=== PATIENT | female | born 1955 | race Caucasian/White ===

== ENCOUNTER 2016-08-12 15:26 | Emergency (ER) | payer MEDICARE, MEDICAID ==
[~2016-08-12] VITALS: Ht 154.9 cm; Wt 70.0 kg
[~2016-08-12 15:26] MED LIST: INSLAN; LEVO25TA7; NIFE10CA; SIMV20TA2
[2016-08-12] MEDS ORDERED: HYDROCODONE/ACETAMINOPHEN 5/325MG TABLET PO ONE ×2 (16:45→20:00)
[2016-08-12] MEDS ORDERED: LIDOCAINE HCL 1%/EPI 1:200,000 30 ML VIAL MC ONE (16:45)
[2016-08-12 17:05] LABS: BASOPHILS % 0.8 % (0.0-2.0); EOSINOPHILS % 2.8 % (0.0-5.0); HEMATOCRIT. 33.5 % (36.0-48.0); HEMOGLOBIN. 11.4 g/dL (12.0-16.0); LYMPHOCYTES % 14.6 % (20.0-50.0); MEAN CORPUSCULAR HEMOGLOBIN 33.7 pg (28.0-32.0); MEAN CORPUSCULAR VOLUME 99.3 fL (81.0-99.0); MEAN PLATELET VOLUME 10.4 fl (7.4-10.4); MONOCYTES % 8.4 % (2.0-8.0); NEUTROPHILS % 73.4 % (40.0-76.0); PLATELET 215 x1000/uL (130-400); RED BLOOD CELL COUNT 3.38 mill/uL (4.2-5.4); RED CELL DISTRIBUTION WIDTH 15.5 % (11.6-14.6)
[2016-08-12 17:12] LABS: INR 1.1; PARTIAL THROMBOPLASTIN TIME 25.2 sec (24.0-34.0); PROTHROMBIN TIME 11.1 sec
[2016-08-12] MEDS ORDERED: BACITRACIN ZINC OINT UDPKT TOP ONE (19:00)
[2016-08-12 21:15] VITALS: BP 154/63
== END 2016-08-12 21:18 | disposition home or self-care (01) ==
LOC: ER 16:26
DX: S81.012A Laceration without foreign body, left knee, initial encounter (principal); I12.9 Hypertensive chronic kidney disease with stage 1 through stage 4 chronic kidney disease, or unspecified chronic kidney disease; E11.22 Type 2 diabetes mellitus with diabetic chronic kidney disease; N18.9 Chronic kidney disease, unspecified; E78.00 Pure hypercholesterolemia, unspecified; Z79.4 Long term (current) use of insulin; Z79.899 Other long term (current) drug therapy; Z99.2 Dependence on renal dialysis; W19.XXXA Unspecified fall, initial encounter; Y93.89 Activity, other specified; Y92.89 Other specified places as the place of occurrence of the external cause; Y99.8 Other external cause status
CPT/HCPCS: 12004; 36415; 73564; 80048; 85025; 85610; 85730; 93005; 99285

== ENCOUNTER 2018-01-05 09:30 | Inpatient (IN) | payer MEDICARE, MEDICAID ==
[~2018-01-05] VITALS: Ht 157.5 cm; Wt 85.6 kg
[2018-01-05 11:12] LABS: BASOPHILS % 0.8 % (0.0-2.0); EOSINOPHILS % 3.6 % (0.0-5.0); HEMATOCRIT. 32.1 % (36.0-48.0); HEMOGLOBIN. 10.8 g/dL (12.0-16.0); LYMPHOCYTES % 17.6 % (20.0-50.0); MEAN CORPUSCULAR HEMOGLOBIN 32.6 pg (28.0-32.0); MEAN CORPUSCULAR VOLUME 97.4 fL (81.0-99.0); MONOCYTES % 10.3 % (2.0-8.0); NEUTROPHILS % 67.7 % (40.0-76.0); PLATELET 163 x1000/uL (130-400); RED CELL DISTRIBUTION WIDTH 14.8 % (11.6-14.6)
[2018-01-05 11:22] LABS: CHLORIDE 102 mEq/L (98-107)
[2018-01-05] MEDS ORDERED: ACETAMINOPHEN 325MG TABLET PO PRN (13:15)
[2018-01-05] MEDS ORDERED: ONDANSETRON HCL 4MG/2ML INJ IV PRN (13:15)
[2018-01-05] MEDS ORDERED: LORAZEPAM 2MG/ML CPJ IV PRN (13:15)
[2018-01-05] MEDS: METOPROLOL TARTRATE 25MG TABLET PO SCH (15:30)
[2018-01-05] MEDS ORDERED: CLONIDINE 0.2MG TABLET PO ONE ×2 (17:45→23:45)
[2018-01-06] VITALS (7 sets, daily range): BP systolic 142–191; BP diastolic 45–60
[2018-01-06] MEDS: CLONIDINE 0.1MG TABLET PO PRN ×2 (02:07→16:04)
[2018-01-06] MEDS: AMLODIPINE 5MG TABLET PO SCH ×4 (02:07→22:43)
[2018-01-06] MEDS: ENOXAPARIN 40MG/0.4ML SYR SUBCUT SCH (08:28)
[2018-01-06] MEDS: HYDROCODONE/ACETAMINOPHEN 5/325MG TABLET PO PRN ×2 (08:29→22:44)
[2018-01-06] MEDS: METOPROLOL TARTRATE 25MG TABLET PO SCH ×2 (09:00→22:43)
[2018-01-06] MEDS ORDERED: DEXTROSE 50% WATER 50ML SYRINGE IV PRN (14:45)
[2018-01-06] MEDS: LEVOTHYROXINE SODIUM 25MCG TABLET PO SCH (14:57)
[2018-01-06] MEDS ORDERED: IPRATROPIUM/ALBUTEROL 0.5-3(2.5)MG/3ML NEB HHN PRN (15:00)
[2018-01-06] MEDS: BLOOD SUGAR DIAGNOSTIC STRIP TEST SCH ×2 (17:10→21:00)
[2018-01-06] MEDS ORDERED: ATORVASTATIN CALCIUM 10MG TABLET PO SCH (21:00)
[2018-01-06] MEDS ORDERED: INSULIN GLARGINE UD 100 UNITS/ML SYR SUBCUT SCH (22:00)
[2018-01-07] VITALS: BP 164/62
[2018-01-07 04:00] VITALS: BP 150/50
[2018-01-07] MEDS: BLOOD SUGAR DIAGNOSTIC STRIP TEST SCH ×3 (06:20→16:53)
[2018-01-07] MEDS: LEVOTHYROXINE SODIUM 25MCG TABLET PO SCH (06:20)
[2018-01-07 07:21] LABS: BASOPHILS % 0.7 % (0.0-2.0); EOSINOPHILS % 5.7 % (0.0-5.0); HEMATOCRIT. 32.8 % (36.0-48.0); HEMOGLOBIN. 10.8 g/dL (12.0-16.0); LYMPHOCYTES % 18.4 % (20.0-50.0); MEAN CORPUSCULAR HEMOGLOBIN 32.2 pg (28.0-32.0); MEAN CORPUSCULAR VOLUME 97.8 fL (81.0-99.0); MEAN PLATELET VOLUME 11.6 fl (7.4-10.4); MONOCYTES % 11.3 % (2.0-8.0); NEUTROPHILS % 63.9 % (40.0-76.0); PLATELET 158 x1000/uL (130-400); RED BLOOD CELL COUNT 3.36 mill/uL (4.2-5.4)
[2018-01-07 08:12] VITALS: BP 169/55
[2018-01-07] MEDS: AMLODIPINE 5MG TABLET PO SCH ×2 (09:00→15:01)
[2018-01-07] MEDS: METOPROLOL TARTRATE 25MG TABLET PO SCH (09:00)
[2018-01-07 09:39] LABS: PHOSPHORUS 5.1 mg/dL (2.5-4.9)
[2018-01-07] MEDS: ENOXAPARIN 40MG/0.4ML SYR SUBCUT SCH (09:42)
[2018-01-07 12:00] VITALS: BP 203/69
[2018-01-07] MEDS: CLONIDINE 0.1MG TABLET PO PRN (15:01)
[2018-01-07 15:05] VITALS: BP 146/38
[2018-01-07 16:00] VITALS: BP 146/38
== END 2018-01-07 18:05 | disposition home or self-care (01) | DRG 291 ==
LOC: ER 09:30 → 8WST 12:38 → CANRESERV 20:30 → ENRESERV 20:30
PROVIDERS: ADMIT Internal Medicine Nephrology; ATTEND Internal Medicine Nephrology
PROC: 5A1D70Z Performance of Urinary Filtration, Intermittent, Less than 6 Hours Per Day (ICD-10-PCS; principal; 2018-01-07)
DX: I13.2 Hypertensive heart and chronic kidney disease with heart failure and with stage 5 chronic kidney disease, or end stage renal disease (principal); I50.33 Acute on chronic diastolic (congestive) heart failure; J96.00 Acute respiratory failure, unspecified whether with hypoxia or hypercapnia; N18.6 End stage renal disease; E44.1 Mild protein-calorie malnutrition; D63.8 Anemia in other chronic diseases classified elsewhere; M54.9 Dorsalgia, unspecified; E03.9 Hypothyroidism, unspecified; E11.22 Type 2 diabetes mellitus with diabetic chronic kidney disease; E78.00 Pure hypercholesterolemia, unspecified; R00.1 Bradycardia, unspecified; E78.5 Hyperlipidemia, unspecified; E11.42 Type 2 diabetes mellitus with diabetic polyneuropathy; G89.29 Other chronic pain; R26.2 Difficulty in walking, not elsewhere classified; H54.8 Legal blindness, as defined in USA; M48.02 Spinal stenosis, cervical region; M48.061 Spinal stenosis, lumbar region without neurogenic claudication; Z82.49 Family history of ischemic heart disease and other diseases of the circulatory system; Z83.3 Family history of diabetes mellitus; Z87.891 Personal history of nicotine dependence; Z99.2 Dependence on renal dialysis; Z79.4 Long term (current) use of insulin; Z79.899 Other long term (current) drug therapy; Z68.34 Body mass index [BMI] 34.0-34.9, adult
CPT/HCPCS: 36415; 71045; 72141; 72146; 72148; 80048; 82962; 83735; 83880; 84100; 84484; 87804; 93005; 93306; 94640; 96374; 97162; 97165; 99285; J1650; J1815; J2060; J7030; J7620

== ENCOUNTER 2019-01-09 10:15 | Emergency (ER) | payer MEDICARE, MEDICAID ==
[~2019-01-09] VITALS: Ht 152.4 cm; Wt 72.0 kg
[2019-01-09] MEDS ORDERED: SILVER SULFADIAZINE 1% CREAM 50GM TOP STA (11:09)
[2019-01-09] MEDS ORDERED: HYDROCODONE/ACETAMINOPHEN 5/325MG TABLET PO ONE (11:15)
[2019-01-09] MEDS ORDERED: TETANUS, DIPHTHERIA, PERTUSSIS VAC/PF 0.5ML (>7YR OLD) IM ONE (11:15)
[2019-01-09] MEDS ORDERED: ONDANSETRON 4MG ODT PO ONE (11:15)
[2019-01-09 12:59] VITALS: BP 132/71
== END 2019-01-09 13:03 | disposition home or self-care (01) ==
LOC: ER 10:15
DX: T23.201A Burn of second degree of right hand, unspecified site, initial encounter (principal); E11.22 Type 2 diabetes mellitus with diabetic chronic kidney disease; I12.0 Hypertensive chronic kidney disease with stage 5 chronic kidney disease or end stage renal disease; N18.6 End stage renal disease; Z79.899 Other long term (current) drug therapy; Z79.4 Long term (current) use of insulin; Z99.2 Dependence on renal dialysis; X08.8XXA Exposure to other specified smoke, fire and flames, initial encounter; Y93.89 Activity, other specified; Y92.89 Other specified places as the place of occurrence of the external cause; Y99.8 Other external cause status
CPT/HCPCS: 16020; 90471; 90715; 99283; Q0162

== ENCOUNTER 2019-05-26 14:49 | Inpatient (IN) | payer MEDICARE, MEDICAID ==
[~2019-05-26] VITALS: Ht 162.6 cm; Wt 79.9 kg
[~2019-05-26 14:49] MED LIST changes: +HYDR-4001 MT
[2019-05-26] MEDS ORDERED: MORPHINE SULFATE 4 MG/ML CPJ (NOT FOR IM USE) IV STA (16:09)
[2019-05-26] MEDS ORDERED: ONDANSETRON HCL 4MG/2ML INJ IV STA (16:09)
[2019-05-26] MEDS ORDERED: HEPARIN 5000 UNITS/ML VIAL IV ONE (16:15)
[2019-05-26] MEDS ORDERED: HEPARIN 25,000 UNITS PREMIX 500 ML IV ONE (16:45)
[2019-05-26 17:24] LABS: HEMATOCRIT. 31.3 % (36.0-48.0); HEMOGLOBIN. 10.4 g/dL (12.0-16.0); MEAN CORPUSCULAR HEMOGLOBIN 32.5 pg (28.0-32.0); MEAN CORPUSCULAR VOLUME 97.5 fL (81.0-99.0); MEAN PLATELET VOLUME 9.2 fl (7.4-10.4); PLATELET 283 x1000/uL (130-400); RED BLOOD CELL COUNT 3.21 mill/uL (4.2-5.4); RED CELL DISTRIBUTION WIDTH 14.1 % (11.6-14.6)
[2019-05-26 17:29] LABS: CHLORIDE 96 mEq/L (98-107)
[2019-05-26 17:30] LABS: PARTIAL THROMBOPLASTIN TIME 28.9 sec (23.4-31.0); PROTHROMBIN TIME 11.3 sec (9.6-11.0)
[2019-05-26] MEDS ORDERED: HEPARIN BOLUS PRN aPTT 37-44 IV (17:45)
[2019-05-26] MEDS ORDERED: HEPARIN BOLUS PRN aPTT <36 IV (17:45)
[2019-05-26] MEDS ORDERED: HEPARIN 80 UNITS/KG BOLUS IV NR (17:45)
[2019-05-26] MEDS: HEPARIN 25,000 UNITS PREMIX 500 ML IV SCH (17:56)
[2019-05-26 17:57] LABS: PLATELET ESTIMATE NORMAL
[2019-05-26] MEDS ORDERED: HYDROMORPHONE HCL/PF 2MG/ML CPJ IV ONE ×2 (18:45)
[2019-05-26 20:00] VITALS: BP_SYST 145; BP_SYST 148; BP_DIAS 58; BP_DIAS 59
[2019-05-26] MEDS ORDERED: ACETAMINOPHEN 325MG TABLET PO PRN (20:15)
[2019-05-26] MEDS ORDERED: CLONIDINE 0.1MG TABLET PO PRN (20:15)
[2019-05-26] MEDS ORDERED: DEXTROSE 50% WATER 50ML SYRINGE IV PRN (20:30)
[2019-05-26] MEDS: INSULIN LISPRO 100 UNITS/ML SUBCUT SCH (21:00)
[2019-05-26] MEDS ORDERED: IOHEXOL-350 100 ML BOTTLE ONE (21:17)
[2019-05-26] MEDS: MORPHINE SULFATE 2 MG/ML CPJ (NOT FOR IM USE) IV PRN (21:22)
[2019-05-26] MEDS: BLOOD SUGAR DIAGNOSTIC STRIP TEST SCH (21:31)
[2019-05-26 22:00] VITALS: BP 145/59
[2019-05-26] MEDS ORDERED: LORAZEPAM 2MG/ML CPJ IV PRN (23:00)
[2019-05-26] MEDS ORDERED: IPRATROPIUM/ALBUTEROL 0.5-3(2.5)MG/3ML NEB NEB PRN (23:00)
[2019-05-26] MEDS ORDERED: ENOXAPARIN 40MG/0.4ML SYR SUBCUT SCH (23:00)
[2019-05-27] VITALS (12 sets, daily range): BP systolic 100–158; BP diastolic 38–85
[2019-05-27] MEDS: HYDROCODONE/ACETAMINOPHEN 5/325MG TABLET PO PRN ×2 (00:13→22:12)
[2019-05-27] MEDS: MORPHINE SULFATE 2 MG/ML CPJ (NOT FOR IM USE) IV PRN ×7 (01:45→23:42)
[2019-05-27] MEDS: BLOOD SUGAR DIAGNOSTIC STRIP TEST SCH ×4 (07:58→21:00)
[2019-05-27] MEDS: INSULIN LISPRO 100 UNITS/ML SUBCUT SCH ×4 (08:12→21:00)
[2019-05-27] MEDS: FOLIC ACID 1MG TABLET PO SCH (11:31)
[2019-05-27] MEDS: LEVOTHYROXINE SODIUM 25MCG TABLET PO SCH (19:06)
[2019-05-27] MEDS: HEPARIN 25,000 UNITS PREMIX 500 ML IV SCH (20:35)
[2019-05-27] MEDS: INSULIN GLARGINE UD 100 UNITS/ML SYR SUBCUT SCH (22:13)
[2019-05-28] VITALS (44 sets, daily range): BP systolic 52–151; BP diastolic 18–76
[2019-05-28] MEDS ORDERED: VANCOMYCIN 750 MG PREMIX 150 ML IV SCH (01:00)
[2019-05-28 01:32] LABS: INR 1.1
[2019-05-28] MEDS: MORPHINE SULFATE 2 MG/ML CPJ (NOT FOR IM USE) IV PRN ×4 (02:19→19:39)
[2019-05-28 02:24] LABS: BASOPHILS % 0.2 % (0.0-2.0); EOSINOPHILS % 2.4 % (0.0-5.0); HEMOGLOBIN. 10.6 g/dL (12.0-16.0); INR 1.1; LYMPHOCYTES % 9.8 % (20.0-50.0); MEAN CORPUSCULAR HEMOGLOBIN 32.1 pg (28.0-32.0); MEAN CORPUSCULAR VOLUME 97.3 fL (81.0-99.0); MEAN PLATELET VOLUME 9.7 fl (7.4-10.4); MONOCYTES % 6.6 % (2.0-8.0); PLATELET 288 x1000/uL (130-400); PROTHROMBIN TIME 11.9 sec (9.6-11.0); RED BLOOD CELL COUNT 3.29 mill/uL (4.2-5.4); RED CELL DISTRIBUTION WIDTH 14.4 % (11.6-14.6)
[2019-05-28 02:32] LABS: PHOSPHORUS 4.8 mg/dL (2.5-4.9)
[2019-05-28] MEDS: HYDROCODONE/ACETAMINOPHEN 5/325MG TABLET PO PRN ×2 (03:08→23:16)
[2019-05-28] MEDS: BLOOD SUGAR DIAGNOSTIC STRIP TEST SCH ×4 (07:30→21:47)
[2019-05-28] MEDS: INSULIN LISPRO 100 UNITS/ML SUBCUT SCH ×4 (08:00→21:48)
[2019-05-28] MEDS ORDERED: FENTANYL CITRATE/PF 50MCG/ML 2ML VIAL ONE ×2 (08:27→09:20)
[2019-05-28] MEDS ORDERED: IODIXANOL 320MG/ML 100 ML BOTTLE IV ONE (08:27)
[2019-05-28] MEDS ORDERED: MIDAZOLAM HCL 2 MG/2 ML VIAL ONE ×2 (08:27→09:20)
[2019-05-28] MEDS ORDERED: LIDOCAINE HCL 1% 20ML VIAL (Pyxis) INJ ONE (08:28)
[2019-05-28] MEDS: FOLIC ACID 1MG TABLET PO SCH (09:00)
[2019-05-28] MEDS ORDERED: DOPAMINE 400MG/250ML PREMIX 250 ML IV ONE (09:28)
[2019-05-28 12:20] LABS: BASOPHILS % 0.5 % (0.0-2.0); HEMOGLOBIN. 9.1 g/dL (12.0-16.0); LYMPHOCYTES % 9.9 % (20.0-50.0); MEAN CORPUSCULAR HEMOGLOBIN 31.9 pg (28.0-32.0); MEAN CORPUSCULAR VOLUME 98.4 fL (81.0-99.0); MEAN PLATELET VOLUME 10.3 fl (7.4-10.4); MONOCYTES % 6.1 % (2.0-8.0); NEUTROPHILS % 81.5 % (40.0-76.0); PLATELET 322 x1000/uL (130-400); RED BLOOD CELL COUNT 2.85 mill/uL (4.2-5.4); RED CELL DISTRIBUTION WIDTH 14.4 % (11.6-14.6)
[2019-05-28] MEDS ORDERED: PIPERACILLIN/TAZOBACTAM 3.375 G in DEXT 5% WATER 100 ML IV SCH (13:30)
[2019-05-28] MEDS: DOPAMINE 400MG/250ML PREMIX 250 ML IV PRN (13:36)
[2019-05-28] MEDS: HEPARIN 25,000 UNITS PREMIX 500 ML IV SCH (14:55)
[2019-05-28] MEDS: LEVOTHYROXINE SODIUM 25MCG TABLET PO SCH (17:40)
[2019-05-28] MEDS: PIPERACILLIN/TAZOBACTAM 2.25 G in DEXTROSE 5% WATER 50 ML IV SCH ×2 (17:41→21:48)
[2019-05-28] MEDS: INSULIN GLARGINE UD 100 UNITS/ML SYR SUBCUT SCH (21:49)
[2019-05-29] VITALS (55 sets, daily range): BP systolic 91–152; BP diastolic 17–83
[2019-05-29] MEDS: HEPARIN 25,000 UNITS PREMIX 500 ML IV SCH (00:11)
[2019-05-29] MEDS: MORPHINE SULFATE 2 MG/ML CPJ (NOT FOR IM USE) IV PRN ×3 (00:14→05:41)
[2019-05-29] MEDS: DOPAMINE 400MG/250ML PREMIX 250 ML IV PRN (00:42)
[2019-05-29] MEDS: PIPERACILLIN/TAZOBACTAM 2.25 G in DEXTROSE 5% WATER 50 ML IV SCH ×3 (05:36→21:38)
[2019-05-29 06:33] LABS: BASOPHILS % 0.3 % (0.0-2.0); EOSINOPHILS % 2.2 % (0.0-5.0); HEMATOCRIT. 23.1 % (36.0-48.0); HEMOGLOBIN. 7.7 g/dL (12.0-16.0); LYMPHOCYTES % 9.4 % (20.0-50.0); MEAN CORPUSCULAR HEMOGLOBIN 32.2 pg (28.0-32.0); MEAN CORPUSCULAR VOLUME 96.9 fL (81.0-99.0); MEAN PLATELET VOLUME 9.6 fl (7.4-10.4); MONOCYTES % 7.7 % (2.0-8.0); NEUTROPHILS % 80.4 % (40.0-76.0); PLATELET 256 x1000/uL (130-400); RED BLOOD CELL COUNT 2.38 mill/uL (4.2-5.4); RED CELL DISTRIBUTION WIDTH 14.1 % (11.6-14.6)
[2019-05-29] MEDS: BLOOD SUGAR DIAGNOSTIC STRIP TEST SCH ×4 (07:50→21:38)
[2019-05-29] MEDS: FOLIC ACID 1MG TABLET PO SCH ×2 (08:01→12:09)
[2019-05-29] MEDS: INSULIN LISPRO 100 UNITS/ML SUBCUT SCH ×4 (08:01→21:40)
[2019-05-29] MEDS ORDERED: MIDAZOLAM HCL 2 MG/2 ML VIAL ONE (08:05)
[2019-05-29] MEDS ORDERED: FENTANYL CITRATE/PF 50MCG/ML 2ML VIAL ONE (08:05)
[2019-05-29] MEDS ORDERED: PROPOFOL 200MG/20ML VIAL IV ONE (08:07)
[2019-05-29] MEDS ORDERED: LIDOCAINE HCL 1% 20ML VIAL (Pyxis) INJ ONE ×2 (08:08→08:29)
[2019-05-29] MEDS ORDERED: EPHEDRINE SULFATE 50MG/ML VIAL ONE (08:12)
[2019-05-29] MEDS ORDERED: SODIUM CHLORIDE 0.9% 10ML VIAL ONE ×3 (08:12→09:12)
[2019-05-29] MEDS ORDERED: PHENYLEPHRINE HCL 10 MG/ML 1ML (IV VIAL) IV ONE (08:13)
[2019-05-29] MEDS ORDERED: IODIXANOL 320MG/ML 100 ML BOTTLE IV ONE (08:30)
[2019-05-29] MEDS ORDERED: ROCURONIUM BROMIDE 10MG/ML VIAL 5ML IV ONE (09:06)
[2019-05-29] MEDS ORDERED: CEFAZOLIN SODIUM 1000MG/VIAL ONE (09:12)
[2019-05-29] MEDS ORDERED: HEPARIN 1000 UNITS/ML 10ML ONE (09:34)
[2019-05-29] MEDS ORDERED: ONDANSETRON HCL 4MG/2ML INJ ONE (09:37)
[2019-05-29] MEDS ORDERED: DEXAMETHASONE 4MG/ML 1ML VIAL ONE (09:37)
[2019-05-29] MEDS ORDERED: IOHEXOL-300 100 ML BOTTLE ONE (09:50)
[2019-05-29] MEDS ORDERED: PROTAMINE SULFATE 10MG/ML VIAL 5ML IV ONE (10:19)
[2019-05-29] MEDS ORDERED: THROMBIN (BOVINE) 5000 UNITS/VIAL TOP ONE (10:21)
[2019-05-29] MEDS: MORPHINE SULFATE 4 MG/ML CPJ (NOT FOR IM USE) IV PRN (11:38)
[2019-05-29] MEDS: HYDROCODONE/ACETAMINOPHEN 5/325MG TABLET PO PRN (12:55)
[2019-05-29 12:58] LABS: HEMATOCRIT. 29.6 % (36.0-48.0); HEMOGLOBIN. 9.8 g/dL (12.0-16.0); MEAN CORPUSCULAR HEMOGLOBIN 31.6 pg (28.0-32.0); MEAN CORPUSCULAR VOLUME 95.4 fL (81.0-99.0); MEAN PLATELET VOLUME 9.9 fl (7.4-10.4); PLATELET 246 x1000/uL (130-400); RED BLOOD CELL COUNT 3.11 mill/uL (4.2-5.4); RED CELL DISTRIBUTION WIDTH 16.6 % (11.6-14.6)
[2019-05-29 13:49] LABS: PLATELET ESTIMATE NORMAL
[2019-05-29] MEDS ORDERED: VANCOMYCIN 1 G PREMIX 200 ML IV NR (14:00)
[2019-05-29] MEDS: LEVOTHYROXINE SODIUM 25MCG TABLET PO SCH (17:16)
[2019-05-29] MEDS: INSULIN GLARGINE UD 100 UNITS/ML SYR SUBCUT SCH (21:39)
[2019-05-30] VITALS (65 sets, daily range): BP systolic 76–149; BP diastolic 14–136
[2019-05-30 05:32] LABS: MEAN CORPUSCULAR HEMOGLOBIN 31.2 pg (28.0-32.0); MEAN CORPUSCULAR VOLUME 93.4 fL (81.0-99.0); MEAN PLATELET VOLUME 9.5 fl (7.4-10.4); PLATELET 208 x1000/uL (130-400); RED BLOOD CELL COUNT 2.25 mill/uL (4.2-5.4)
[2019-05-30] MEDS: PIPERACILLIN/TAZOBACTAM 2.25 G in DEXTROSE 5% WATER 50 ML IV SCH ×3 (06:26→22:02)
[2019-05-30] MEDS: MORPHINE SULFATE 4 MG/ML CPJ (NOT FOR IM USE) IV PRN (06:44)
[2019-05-30] MEDS: BLOOD SUGAR DIAGNOSTIC STRIP TEST SCH ×4 (07:50→21:10)
[2019-05-30 08:18] LABS: PLATELET ESTIMATE NORMAL
[2019-05-30] MEDS ORDERED: THROMBIN (BOVINE) 5000 UNITS/VIAL TOP NR (08:30)
[2019-05-30] MEDS ORDERED: SODIUM BICARBONATE 4% (2.4MEQ) 5ML VIAL IV ONE (08:37)
[2019-05-30] MEDS ORDERED: LIDOCAINE HCL 1% 20ML VIAL (Pyxis) INJ ONE (08:37)
[2019-05-30] MEDS: INSULIN LISPRO 100 UNITS/ML SUBCUT SCH ×4 (09:15→21:00)
[2019-05-30] MEDS: FOLIC ACID 1MG TABLET PO SCH (09:15)
[2019-05-30] MEDS: HYDROCODONE/ACETAMINOPHEN 5/325MG TABLET PO PRN (13:31)
[2019-05-30] MEDS: INSULIN GLARGINE UD 100 UNITS/ML SYR SUBCUT SCH ×2 (13:55→22:02)
[2019-05-30 15:32] LABS: HEMATOCRIT 24.3 % (36.0-48.0); HEMOGLOBIN 8.1 g/dL (12.0-16.0)
[2019-05-30] MEDS: LEVOTHYROXINE SODIUM 25MCG TABLET PO SCH (17:58)
[2019-05-31] VITALS: BP 154/33
[2019-05-31] MEDS: HYDROCODONE/ACETAMINOPHEN 5/325MG TABLET PO PRN ×2 (00:55→07:55)
[2019-05-31 02:00] VITALS: BP 128/39
[2019-05-31] MEDS: MORPHINE SULFATE 4 MG/ML CPJ (NOT FOR IM USE) IV PRN ×6 (02:32→22:26)
[2019-05-31 03:01] VITALS: BP 128/39
[2019-05-31 04:00] VITALS: BP_SYST 137; BP_SYST 70; BP_DIAS 37
[2019-05-31] MEDS: PIPERACILLIN/TAZOBACTAM 2.25 G in DEXTROSE 5% WATER 50 ML IV SCH ×3 (05:19→23:45)
[2019-05-31 06:10] LABS: BASOPHILS % 0.3 % (0.0-2.0); EOSINOPHILS % 1.9 % (0.0-5.0); HEMATOCRIT. 25.9 % (36.0-48.0); HEMOGLOBIN. 8.7 g/dL (12.0-16.0); LYMPHOCYTES % 8.4 % (20.0-50.0); MEAN CORPUSCULAR VOLUME 92.9 fL (81.0-99.0); MEAN PLATELET VOLUME 9.3 fl (7.4-10.4); MONOCYTES % 6.8 % (2.0-8.0); NEUTROPHILS % 82.6 % (40.0-76.0); PLATELET 218 x1000/uL (130-400); RED BLOOD CELL COUNT 2.79 mill/uL (4.2-5.4); RED CELL DISTRIBUTION WIDTH 17.1 % (11.6-14.6)
[2019-05-31] MEDS: BLOOD SUGAR DIAGNOSTIC STRIP TEST SCH ×4 (07:37→20:25)
[2019-05-31] MEDS: FOLIC ACID 1MG TABLET PO SCH (07:58)
[2019-05-31] MEDS: INSULIN LISPRO 100 UNITS/ML SUBCUT SCH ×4 (08:00→21:00)
[2019-05-31] MEDS: INSULIN GLARGINE UD 100 UNITS/ML SYR SUBCUT SCH ×2 (10:00→22:31)
[2019-05-31] MEDS: DIPHENHYDRAMINE 50MG/ML VIAL IV PRN ×2 (14:04→22:24)
[2019-05-31] MEDS: LEVOTHYROXINE SODIUM 25MCG TABLET PO SCH (17:00)
[2019-05-31 20:00] VITALS: BP 155/62
[2019-05-31 22:00] VITALS: BP 101/47
[2019-06-01] VITALS (12 sets, daily range): BP systolic 125–156; BP diastolic 38–75
[2019-06-01] MEDS: MORPHINE SULFATE 4 MG/ML CPJ (NOT FOR IM USE) IV PRN ×3 (02:21→19:40)
[2019-06-01] MEDS: PIPERACILLIN/TAZOBACTAM 2.25 G in DEXTROSE 5% WATER 50 ML IV SCH ×3 (05:54→21:33)
[2019-06-01] MEDS: INSULIN LISPRO 100 UNITS/ML SUBCUT SCH ×4 (08:00→21:34)
[2019-06-01] MEDS ORDERED: HYDROMORPHONE HCL/PF 2MG/ML CPJ IM PRN (08:15)
[2019-06-01] MEDS: FOLIC ACID 1MG TABLET PO SCH (08:27)
[2019-06-01] MEDS: BLOOD SUGAR DIAGNOSTIC STRIP TEST SCH ×4 (08:27→21:33)
[2019-06-01] MEDS: HYDROMORPHONE HCL/PF 2MG/ML CPJ IV PRN ×3 (09:01→22:59)
[2019-06-01] MEDS: DOCUSATE SODIUM 250MG CAPSULE PO SCH (10:45)
[2019-06-01] MEDS ORDERED: SORBITOL 70% SOLN 30ML PO NR (10:45)
[2019-06-01 11:32] LABS: BASOPHILS % 0.8 % (0.0-2.0); EOSINOPHILS % 4.2 % (0.0-5.0); HEMATOCRIT. 23.6 % (36.0-48.0); HEMOGLOBIN. 7.8 g/dL (12.0-16.0); MEAN CORPUSCULAR HEMOGLOBIN 31.1 pg (28.0-32.0); MEAN CORPUSCULAR VOLUME 93.7 fL (81.0-99.0); MONOCYTES % 5.8 % (2.0-8.0); NEUTROPHILS % 81.2 % (40.0-76.0); PLATELET 222 x1000/uL (130-400); RED BLOOD CELL COUNT 2.52 mill/uL (4.2-5.4); RED CELL DISTRIBUTION WIDTH 17.3 % (11.6-14.6)
[2019-06-01] MEDS: DIPHENHYDRAMINE 50MG/ML VIAL IV PRN (12:30)
[2019-06-01] MEDS ORDERED: VANCOMYCIN 1,000 MG in DEXT 5% WATER 250 ML IV NR (18:00)
[2019-06-01] MEDS ORDERED: VANCOMYCIN 1 G PREMIX 200 ML IV NR (18:00)
[2019-06-01] MEDS: LEVOTHYROXINE SODIUM 25MCG TABLET PO SCH (18:30)
[2019-06-01] MEDS: ONDANSETRON HCL 4MG/2ML INJ IV PRN (18:50)
[2019-06-01] MEDS: DIPHENHYDRAMINE 25MG CAPSULE PO PRN (19:39)
[2019-06-01] MEDS: INSULIN GLARGINE UD 100 UNITS/ML SYR SUBCUT SCH (21:35)
[2019-06-02] VITALS (15 sets, daily range): BP systolic 120–183; BP diastolic 42–93
[2019-06-02] MEDS: MORPHINE SULFATE 4 MG/ML CPJ (NOT FOR IM USE) IV PRN ×3 (01:11→07:50)
[2019-06-02] MEDS: PIPERACILLIN/TAZOBACTAM 2.25 G in DEXTROSE 5% WATER 50 ML IV SCH (05:04)
[2019-06-02] MEDS: HYDROMORPHONE HCL/PF 2MG/ML CPJ IV PRN ×6 (06:12→22:08)
[2019-06-02 06:28] LABS: HEMATOCRIT. 28.8 % (36.0-48.0); HEMOGLOBIN. 9.8 g/dL (12.0-16.0); MEAN CORPUSCULAR HEMOGLOBIN 31.7 pg (28.0-32.0); MEAN CORPUSCULAR VOLUME 93.6 fL (81.0-99.0); MEAN PLATELET VOLUME 9.2 fl (7.4-10.4); PLATELET 227 x1000/uL (130-400); RED BLOOD CELL COUNT 3.08 mill/uL (4.2-5.4); RED CELL DISTRIBUTION WIDTH 16.2 % (11.6-14.6)
[2019-06-02] MEDS: BLOOD SUGAR DIAGNOSTIC STRIP TEST SCH ×3 (07:35→20:45)
[2019-06-02] MEDS: INSULIN LISPRO 100 UNITS/ML SUBCUT SCH ×3 (08:00→20:46)
[2019-06-02 08:36] LABS: PLATELET ESTIMATE NORMAL
[2019-06-02] MEDS: DOCUSATE SODIUM 250MG CAPSULE PO SCH (09:00)
[2019-06-02] MEDS: FOLIC ACID 1MG TABLET PO SCH (09:00)
[2019-06-02] MEDS: INSULIN GLARGINE UD 100 UNITS/ML SYR SUBCUT SCH (10:00)
[2019-06-02] MEDS ORDERED: BACITRACIN 50,000 UNITS/VIAL ONE (13:09)
[2019-06-02] MEDS ORDERED: ROPIVACAINE HCL 10MG/ML 20 ML VIAL EPI ONE ×2 (16:19→16:45)
[2019-06-02] MEDS ORDERED: ONDANSETRON HCL 4MG/2ML INJ ONE (16:51)
[2019-06-02] MEDS ORDERED: FENTANYL CITRATE/PF 50MCG/ML 2ML VIAL ONE (16:51)
[2019-06-02] MEDS ORDERED: GLYCOPYRROLATE 0.2 MG/ML 2ML VIAL ONE (16:51)
[2019-06-02] MEDS ORDERED: LIDOCAINE HCL/PF 1% 10 MG/ML 5ML VIAL ONE (16:51)
[2019-06-02] MEDS ORDERED: METOCLOPRAMIDE HCL 10MG/2ML VIAL ONE (16:51)
[2019-06-02] MEDS ORDERED: MIDAZOLAM HCL 2 MG/2 ML VIAL ONE (16:51)
[2019-06-02] MEDS ORDERED: PROPOFOL 200MG/20ML VIAL IV ONE (16:51)
[2019-06-02] MEDS ORDERED: SUCCINYLCHOLINE CHLORIDE 200MG/10ML IV ONE (16:51)
[2019-06-02] MEDS: LEVOTHYROXINE SODIUM 25MCG TABLET PO SCH (17:00)
[2019-06-02] MEDS ORDERED: VANCOMYCIN HCL 1 GM/VIAL ONE (17:08)
[2019-06-02] MEDS ORDERED: ONDANSETRON HCL 4MG/2ML INJ IV PRN (18:00)
[2019-06-02] MEDS ORDERED: SODIUM CHLORIDE 0.9% 1,000 ML IV ONE (18:15)
[2019-06-02] MEDS: ONDANSETRON HCL 4MG/2ML INJ IV PRN (19:18)
[2019-06-02] MEDS: MORPHINE SULFATE 2 MG/ML CPJ (NOT FOR IM USE) IV PRN ×3 (19:20→23:20)
[2019-06-02] MEDS: CLONIDINE 0.1MG TABLET PO PRN (19:32)
[2019-06-03] VITALS (10 sets, daily range): BP systolic 118–162; BP diastolic 40–97
[2019-06-03] MEDS: HYDROMORPHONE HCL/PF 2MG/ML CPJ IV PRN ×7 (00:24→23:34)
[2019-06-03] MEDS: MORPHINE SULFATE 2 MG/ML CPJ (NOT FOR IM USE) IV PRN (05:38)
[2019-06-03 06:24] LABS: HEMATOCRIT. 28.3 % (36.0-48.0); HEMOGLOBIN. 9.3 g/dL (12.0-16.0); MEAN CORPUSCULAR HEMOGLOBIN 31.1 pg (28.0-32.0); MEAN CORPUSCULAR VOLUME 94.9 fL (81.0-99.0); MEAN PLATELET VOLUME 9.1 fl (7.4-10.4); PLATELET 267 x1000/uL (130-400); RED BLOOD CELL COUNT 2.98 mill/uL (4.2-5.4); RED CELL DISTRIBUTION WIDTH 16.7 % (11.6-14.6)
[2019-06-03] MEDS: BLOOD SUGAR DIAGNOSTIC STRIP TEST SCH ×4 (07:30→20:51)
[2019-06-03] MEDS: INSULIN LISPRO 100 UNITS/ML SUBCUT SCH ×4 (08:00→21:00)
[2019-06-03] MEDS: DOCUSATE SODIUM 250MG CAPSULE PO SCH (08:45)
[2019-06-03] MEDS: FOLIC ACID 1MG TABLET PO SCH (08:45)
[2019-06-03 10:02] LABS: PLATELET ESTIMATE NORMAL
[2019-06-03] MEDS: HYDROCODONE/ACETAMINOPHEN 10/325MG TABLET PO PRN ×2 (10:02→20:51)
[2019-06-03] MEDS: AMLODIPINE 5MG TABLET PO SCH ×2 (13:41→20:51)
[2019-06-03] MEDS: HYDRALAZINE HCL 25MG TABLET PO SCH ×2 (14:00→20:51)
[2019-06-03] MEDS: LEVOTHYROXINE SODIUM 25MCG TABLET PO SCH (18:10)
[2019-06-03] MEDS: DIPHENHYDRAMINE 25MG CAPSULE PO PRN (23:34)
[2019-06-04] VITALS (12 sets, daily range): BP systolic 126–185; BP diastolic 63–85
[2019-06-04] MEDS: HYDRALAZINE HCL 25MG TABLET PO SCH ×3 (06:00→21:15)
[2019-06-04 06:04] LABS: HEMATOCRIT. 25.2 % (36.0-48.0); HEMOGLOBIN. 8.2 g/dL (12.0-16.0); MEAN CORPUSCULAR HEMOGLOBIN 30.9 pg (28.0-32.0); MEAN CORPUSCULAR VOLUME 94.5 fL (81.0-99.0); MEAN PLATELET VOLUME 9.7 fl (7.4-10.4); PLATELET 249 x1000/uL (130-400); RED BLOOD CELL COUNT 2.66 mill/uL (4.2-5.4); RED CELL DISTRIBUTION WIDTH 16.4 % (11.6-14.6)
[2019-06-04] MEDS: BLOOD SUGAR DIAGNOSTIC STRIP TEST SCH ×4 (07:30→21:00)
[2019-06-04] MEDS: INSULIN LISPRO 100 UNITS/ML SUBCUT SCH ×4 (08:00→21:00)
[2019-06-04] MEDS: DIPHENHYDRAMINE 25MG CAPSULE PO PRN ×2 (08:49→21:15)
[2019-06-04] MEDS: FOLIC ACID 1MG TABLET PO SCH (08:49)
[2019-06-04] MEDS: DOCUSATE SODIUM 250MG CAPSULE PO SCH (08:49)
[2019-06-04] MEDS: HYDROMORPHONE HCL/PF 2MG/ML CPJ IV PRN ×3 (08:50→21:14)
[2019-06-04] MEDS: AMLODIPINE 5MG TABLET PO SCH ×2 (09:02→21:15)
[2019-06-04 12:45] LABS: PLATELET ESTIMATE NORMAL
[2019-06-04] MEDS: ONDANSETRON HCL 4MG/2ML INJ IV PRN ×2 (13:28→23:26)
[2019-06-04] MEDS: CLONIDINE 0.1MG TABLET PO PRN (17:56)
[2019-06-04] MEDS: LEVOTHYROXINE SODIUM 25MCG TABLET PO SCH (17:56)
[2019-06-04] MEDS: HYDROCODONE/ACETAMINOPHEN 10/325MG TABLET PO PRN (23:25)
[2019-06-05] VITALS (12 sets, daily range): BP systolic 144–177; BP diastolic 56–96
[2019-06-05] MEDS: HYDROMORPHONE HCL/PF 2MG/ML CPJ IV PRN ×4 (00:48→17:43)
[2019-06-05] MEDS: HYDRALAZINE HCL 25MG TABLET PO SCH ×3 (05:25→22:00)
[2019-06-05 06:24] LABS: BASOPHILS % 0.4 % (0.0-2.0); EOSINOPHILS % 3.7 % (0.0-5.0); HEMATOCRIT. 25.7 % (36.0-48.0); HEMOGLOBIN. 8.4 g/dL (12.0-16.0); LYMPHOCYTES % 7.9 % (20.0-50.0); MEAN CORPUSCULAR HEMOGLOBIN 31.4 pg (28.0-32.0); MEAN CORPUSCULAR VOLUME 96.1 fL (81.0-99.0); MEAN PLATELET VOLUME 9.5 fl (7.4-10.4); MONOCYTES % 6.6 % (2.0-8.0); NEUTROPHILS % 81.4 % (40.0-76.0); PLATELET 268 x1000/uL (130-400); RED BLOOD CELL COUNT 2.68 mill/uL (4.2-5.4); RED CELL DISTRIBUTION WIDTH 16.6 % (11.6-14.6)
[2019-06-05] MEDS: INSULIN LISPRO 100 UNITS/ML SUBCUT SCH ×4 (08:00→21:00)
[2019-06-05] MEDS: BLOOD SUGAR DIAGNOSTIC STRIP TEST SCH ×4 (08:13→21:00)
[2019-06-05] MEDS: AMLODIPINE 5MG TABLET PO SCH ×2 (08:24→21:00)
[2019-06-05] MEDS: DOCUSATE SODIUM 250MG CAPSULE PO SCH (08:24)
[2019-06-05] MEDS: FOLIC ACID 1MG TABLET PO SCH (08:24)
[2019-06-05] MEDS: DIPHENHYDRAMINE 25MG CAPSULE PO PRN ×2 (08:25→17:41)
[2019-06-05] MEDS ORDERED: HYDR-4009 MT (11:58)
[2019-06-05] MEDS ORDERED: VANCOMYCIN 1,000 MG in DEXT 5% WATER 250 ML IV SCH (12:00)
[2019-06-05] MEDS ORDERED: VANCOMYCIN 1 G PREMIX 200 ML IV NR (12:00)
[2019-06-05] MEDS: CLONIDINE 0.1MG TABLET PO PRN (12:52)
[2019-06-05] MEDS: ONDANSETRON HCL 4MG/2ML INJ IV PRN (13:20)
[2019-06-05] MEDS: LEVOTHYROXINE SODIUM 25MCG TABLET PO SCH (17:41)
[2019-06-06] VITALS (12 sets, daily range): BP systolic 133–182; BP diastolic 51–103
[2019-06-06] MEDS: HYDRALAZINE HCL 25MG TABLET PO SCH ×3 (05:12→20:46)
[2019-06-06] MEDS: BLOOD SUGAR DIAGNOSTIC STRIP TEST SCH ×4 (07:42→20:40)
[2019-06-06] MEDS: INSULIN LISPRO 100 UNITS/ML SUBCUT SCH ×4 (07:42→20:47)
[2019-06-06] MEDS: AMLODIPINE 5MG TABLET PO SCH ×3 (09:00→20:46)
[2019-06-06] MEDS: HYDROCODONE/ACETAMINOPHEN 10/325MG TABLET PO PRN (09:15)
[2019-06-06] MEDS: HYDROMORPHONE HCL/PF 2MG/ML CPJ IV PRN ×2 (10:37→16:01)
[2019-06-06] MEDS: DOCUSATE SODIUM 250MG CAPSULE PO SCH (10:38)
[2019-06-06] MEDS: FOLIC ACID 1MG TABLET PO SCH (10:38)
[2019-06-06 12:53] LABS: HEMATOCRIT. 30.6 % (36.0-48.0); HEMOGLOBIN. 10.1 g/dL (12.0-16.0); MEAN CORPUSCULAR HEMOGLOBIN 31.5 pg (28.0-32.0); MEAN CORPUSCULAR VOLUME 94.9 fL (81.0-99.0); PLATELET 327 x1000/uL (130-400); RED BLOOD CELL COUNT 3.22 mill/uL (4.2-5.4); RED CELL DISTRIBUTION WIDTH 16.3 % (11.6-14.6)
[2019-06-06 13:22] LABS: PLATELET ESTIMATE NORMAL
[2019-06-06] MEDS: LEVOTHYROXINE SODIUM 25MCG TABLET PO SCH (16:03)
[2019-06-07] VITALS (10 sets, daily range): BP systolic 111–169; BP diastolic 44–69
[2019-06-07] MEDS: HYDROCODONE/ACETAMINOPHEN 10/325MG TABLET PO PRN ×3 (00:37→10:33)
[2019-06-07] MEDS: DIPHENHYDRAMINE 25MG CAPSULE PO PRN (00:38)
[2019-06-07] MEDS: HYDRALAZINE HCL 25MG TABLET PO SCH ×3 (05:46→21:20)
[2019-06-07 06:36] LABS: BASOPHILS % 0.9 % (0.0-2.0); EOSINOPHILS % 3.9 % (0.0-5.0); HEMATOCRIT. 28.3 % (36.0-48.0); HEMOGLOBIN. 9.6 g/dL (12.0-16.0); LYMPHOCYTES % 10.8 % (20.0-50.0); MEAN CORPUSCULAR HEMOGLOBIN 31.7 pg (28.0-32.0); MEAN CORPUSCULAR VOLUME 93.8 fL (81.0-99.0); MEAN PLATELET VOLUME 9.6 fl (7.4-10.4); MONOCYTES % 9.4 % (2.0-8.0); PLATELET 306 x1000/uL (130-400); RED BLOOD CELL COUNT 3.02 mill/uL (4.2-5.4); RED CELL DISTRIBUTION WIDTH 15.9 % (11.6-14.6)
[2019-06-07] MEDS: BLOOD SUGAR DIAGNOSTIC STRIP TEST SCH ×4 (07:23→20:55)
[2019-06-07] MEDS: INSULIN LISPRO 100 UNITS/ML SUBCUT SCH ×4 (08:00→21:00)
[2019-06-07] MEDS: DOCUSATE SODIUM 250MG CAPSULE PO SCH (09:04)
[2019-06-07] MEDS: FOLIC ACID 1MG TABLET PO SCH (09:04)
[2019-06-07] MEDS: AMLODIPINE 5MG TABLET PO SCH ×2 (09:05→21:20)
[2019-06-07] MEDS: GABAPENTIN 300MG CAPSULE PO SCH ×2 (12:09→21:20)
[2019-06-07] MEDS ORDERED: LORAZEPAM 2MG/ML CPJ IV PRN (15:00)
[2019-06-07] MEDS: LEVOTHYROXINE SODIUM 25MCG TABLET PO SCH (17:00)
[2019-06-08] VITALS (9 sets, daily range): BP systolic 127–166; BP diastolic 51–75
[2019-06-08] MEDS: GABAPENTIN 300MG CAPSULE PO SCH ×2 (06:12→13:45)
[2019-06-08] MEDS: HYDRALAZINE HCL 25MG TABLET PO SCH ×2 (06:12→13:44)
[2019-06-08 06:33] LABS: BASOPHILS % 0.9 % (0.0-2.0); EOSINOPHILS % 5.5 % (0.0-5.0); HEMATOCRIT. 28.6 % (36.0-48.0); HEMOGLOBIN. 9.5 g/dL (12.0-16.0); LYMPHOCYTES % 10.1 % (20.0-50.0); MEAN CORPUSCULAR HEMOGLOBIN 31.5 pg (28.0-32.0); MEAN CORPUSCULAR VOLUME 94.6 fL (81.0-99.0); MEAN PLATELET VOLUME 9.7 fl (7.4-10.4); MONOCYTES % 10.5 % (2.0-8.0); PLATELET 276 x1000/uL (130-400); RED BLOOD CELL COUNT 3.03 mill/uL (4.2-5.4); RED CELL DISTRIBUTION WIDTH 16.1 % (11.6-14.6)
[2019-06-08] MEDS: INSULIN LISPRO 100 UNITS/ML SUBCUT SCH ×2 (08:00→13:44)
[2019-06-08] MEDS: BLOOD SUGAR DIAGNOSTIC STRIP TEST SCH ×2 (08:03→11:58)
[2019-06-08] MEDS: DOCUSATE SODIUM 250MG CAPSULE PO SCH (09:00)
[2019-06-08] MEDS: AMLODIPINE 5MG TABLET PO SCH (09:01)
[2019-06-08] MEDS: FOLIC ACID 1MG TABLET PO SCH (09:01)
[2019-06-08] MEDS ORDERED: HYDROCODONE/ACETAMINOPHEN 10/325MG TABLET PO PRN ×2 (12:00→12:15)
== END 2019-06-08 14:48 | DRG 853 ==
LOC: ER 14:53 → 5EST 17:10 → ENRESERV 17:27 → CVICU 05-28 11:38 → 5EST 05-31 00:35
PROVIDERS: ADMIT Internal Medicine Nephrology; ATTEND Internal Medicine Nephrology
PROC: 04JY3ZZ Inspection of Lower Artery, Percutaneous Approach (ICD-10-PCS; 2019-05-28)
PROC: 5A1D70Z Performance of Urinary Filtration, Intermittent, Less than 6 Hours Per Day (ICD-10-PCS; 2019-05-28)
PROC: 047W3ZZ Dilation of Left Foot Artery, Percutaneous Approach (ICD-10-PCS; principal; 2019-05-29)
PROC: 047M3ZZ Dilation of Right Popliteal Artery, Percutaneous Approach (ICD-10-PCS; 2019-05-29)
PROC: B41G1ZZ Fluoroscopy of Left Lower Extremity Arteries using Low Osmolar Contrast (ICD-10-PCS; 2019-05-29)
PROC: B41F1ZZ Fluoroscopy of Right Lower Extremity Arteries using Low Osmolar Contrast (ICD-10-PCS; 2019-05-29)
PROC: 30233N1 Transfusion of Nonautologous Red Blood Cells into Peripheral Vein, Percutaneous Approach (ICD-10-PCS; 2019-05-29)
PROC: 3E053GC Introduction of Other Therapeutic Substance into Peripheral Artery, Percutaneous Approach (ICD-10-PCS; 2019-05-30)
PROC: 5A1D70Z Performance of Urinary Filtration, Intermittent, Less than 6 Hours Per Day (ICD-10-PCS; 2019-05-30)
PROC: 5A1D70Z Performance of Urinary Filtration, Intermittent, Less than 6 Hours Per Day (ICD-10-PCS; 2019-06-01)
PROC: 0Y6J0Z1 Detachment at Left Lower Leg, High, Open Approach (ICD-10-PCS; 2019-06-02)
PROC: 5A1D70Z Performance of Urinary Filtration, Intermittent, Less than 6 Hours Per Day (ICD-10-PCS; 2019-06-04)
PROC: 5A1D70Z Performance of Urinary Filtration, Intermittent, Less than 6 Hours Per Day (ICD-10-PCS; 2019-06-05)
DX: A41.9 Sepsis, unspecified organism (principal); N18.6 End stage renal disease; I12.0 Hypertensive chronic kidney disease with stage 5 chronic kidney disease or end stage renal disease; E87.1 Hypo-osmolality and hyponatremia; E11.52 Type 2 diabetes mellitus with diabetic peripheral angiopathy with gangrene; E46 Unspecified protein-calorie malnutrition; L03.116 Cellulitis of left lower limb; I99.8 Other disorder of circulatory system; E11.51 Type 2 diabetes mellitus with diabetic peripheral angiopathy without gangrene; E11.22 Type 2 diabetes mellitus with diabetic chronic kidney disease; E66.01 Morbid (severe) obesity due to excess calories; E78.5 Hyperlipidemia, unspecified; E87.8 Other disorders of electrolyte and fluid balance, not elsewhere classified; I25.10 Atherosclerotic heart disease of native coronary artery without angina pectoris; D63.8 Anemia in other chronic diseases classified elsewhere; E78.00 Pure hypercholesterolemia, unspecified; I95.9 Hypotension, unspecified; R00.1 Bradycardia, unspecified; I72.4 Aneurysm of artery of lower extremity; I27.20 Pulmonary hypertension, unspecified; S30.1XXA Contusion of abdominal wall, initial encounter; Y93.89 Activity, other specified; Z99.2 Dependence on renal dialysis; Y92.89 Other specified places as the place of occurrence of the external cause; Z79.4 Long term (current) use of insulin; Z86.718 Personal history of other venous thrombosis and embolism; Y99.8 Other external cause status; Z79.899 Other long term (current) drug therapy; Z87.891 Personal history of nicotine dependence; Z68.30 Body mass index [BMI] 30.0-30.9, adult
CPT/HCPCS: 36002; 36415; 37224; 37228; 37232; 71045; 75635; 76857; 76942; 80048; 80053; 80202; 82962; 83605; 83735; 84100; 84145; 84484; 85014; 85018; 85025; 85347; 86850; 86900; 86920; 93005; 93306; 93923; 97116; 97162; 97530; 99291; C1725; C1760; C1769; C1887; C1893; C1894; J0330; J0690; J1100; J1170; J1200; J1265; J1644; J1815; J2060; J2250; J2270; J2370; J2405; J2543; J2704; J2720; J2765; J2795; J3010; J3370; J3490; J7060; P9016; Q0163; Q9967

== ENCOUNTER → 2019-08-17 | Outpatient (CLI) | payer MEDICARE, MEDICAID ==
[~2019-08-17] MED LIST changes: +ASPI-1497 PO; +CITA10SO PO; +DIPH25TA23 PO; +GABA-529 PO; -HYDR-4001 MT; +HYDR-4001 PO; +HYDR-4009 MT; +HYDR50SY PO; +LEVO200T8 PO; +LOSA50TA41 PO; +MECL-159 PO; +METO-411 PO; +METO100T16 PO; +MUPI22OI2 TP; +NIFE-32 PO; +RANI150T7 PO; +SIMV-46 PO; +VENL75TA86 PO
== END | disposition home or self-care (01) ==
LOC: LAB 09:03
PROVIDERS: ATTEND Surgery Vascular Surgery
DX: Z03.818 Encounter for observation for suspected exposure to other biological agents ruled out (principal); I70.269 Atherosclerosis of native arteries of extremities with gangrene, unspecified extremity
CPT/HCPCS: U0003-CS

== ENCOUNTER 2019-08-21 10:06 | Inpatient (IN) | payer MEDICARE, MEDICAID ==
[~2019-08-21] VITALS: Ht 165.1 cm; Wt 81.3 kg
[~2019-08-21 10:06] MED LIST changes: -ASPI-1497 PO; -CITA10SO PO; -DIPH25TA23 PO; -GABA-529 PO; -HYDR-4001 PO; -HYDR50SY PO; -LEVO200T8 PO; -LOSA50TA41 PO; -MECL-159 PO; -METO-411 PO; -METO100T16 PO; -MUPI22OI2 TP; -NIFE-32 PO; -RANI150T7 PO; -SIMV-46 PO; -VENL75TA86 PO
[2019-08-21] MEDS ORDERED: BACITRACIN 15GM TUBE TOP ONE (11:06)
[2019-08-21] MEDS ORDERED: LIDOCAINE HCL 1% 20ML VIAL (Pyxis) INJ ONE (11:07)
[2019-08-21] MEDS ORDERED: BUPIVACAINE HCL/PF 0.5% (5MG/ML) 10ML ONE (11:07)
[2019-08-21] MEDS ORDERED: THROMBIN (BOVINE) 5000 UNITS/VIAL TOP ONE (11:07)
[2019-08-21] MEDS ORDERED: NORMAL SALINE 0.9% 10 ML SYR ONE (11:08)
[2019-08-21] MEDS ORDERED: BACITRACIN 50,000 UNITS/VIAL ONE (11:08)
[2019-08-21] MEDS ORDERED: HEPARIN SODIUM 1,000 UNIT/1ML VIAL IV ONE (11:09)
[2019-08-21 11:12] LABS: EOSINOPHILS % 5.1 % (0.0-5.0); HEMATOCRIT. 36.1 % (36.0-48.0); HEMOGLOBIN. 11.9 g/dL (12.0-16.0); LYMPHOCYTES % 17.8 % (20.0-50.0); MEAN CORPUSCULAR HEMOGLOBIN 33.6 pg (28.0-32.0); MEAN CORPUSCULAR VOLUME 102.1 fL (81.0-99.0); MEAN PLATELET VOLUME 10.2 fl (7.4-10.4); MONOCYTES % 9.4 % (2.0-8.0); NEUTROPHILS % 66.7 % (40.0-76.0); PLATELET 165 x1000/uL (130-400); RED BLOOD CELL COUNT 3.54 mill/uL (4.2-5.4); RED CELL DISTRIBUTION WIDTH 17.1 % (11.6-14.6)
[2019-08-21 11:24] LABS: INR 1.1; PARTIAL THROMBOPLASTIN TIME 29.9 sec (23.4-31.0)
[2019-08-21] MEDS ORDERED: MORPHINE SULFATE 4 MG/ML CPJ (NOT FOR IM USE) IV PRN (11:30)
[2019-08-21] MEDS ORDERED: SODIUM CHLORIDE 0.9% 500 ML IV ONE (11:50)
[2019-08-21] MEDS ORDERED: MIDAZOLAM HCL 2 MG/2 ML VIAL ONE (12:06)
[2019-08-21] MEDS ORDERED: FENTANYL CITRATE/PF 50MCG/ML 2ML VIAL ONE (12:06)
[2019-08-21] MEDS ORDERED: PROPOFOL 200MG/20ML VIAL IV ONE (12:06)
[2019-08-21] MEDS ORDERED: GLYCOPYRROLATE 0.2 MG/ML 2ML VIAL ONE (12:06)
[2019-08-21] MEDS ORDERED: ONDANSETRON HCL 4MG/2ML INJ ONE (12:06)
[2019-08-21] MEDS ORDERED: DEXAMETHASONE 4MG/ML 1ML VIAL ONE (12:06)
[2019-08-21] MEDS ORDERED: HYDROMORPHONE HCL/PF 2MG/ML CPJ IV PRN (12:45)
[2019-08-21] MEDS ORDERED: LABETALOL 5MG/ML SYR 20 MG/4 ML SYRINGE IV PRN (12:45)
[2019-08-21] MEDS ORDERED: MEPERIDINE HCL/PF 25MG/ML CPJ IV PRN (12:45)
[2019-08-21] MEDS ORDERED: ONDANSETRON HCL 4MG/2ML INJ IV PRN (12:45)
[2019-08-21] MEDS ORDERED: ALBUMIN HUMAN 12.5G/250ML (5%) IV ONE (13:20)
[2019-08-21] MEDS ORDERED: ASPI-1497 PO (14:23)
[2019-08-21] MEDS ORDERED: NIFE-32 PO (14:23)
[2019-08-21] MEDS ORDERED: LEVO200T8 PO (14:23)
[2019-08-21] MEDS ORDERED: HYDROMORPHONE HCL/PF 2MG/ML (OR) ONE (14:23)
[2019-08-21] MEDS ORDERED: CITA10SO PO (14:23)
[2019-08-21] MEDS ORDERED: METO-411 PO (14:23)
[2019-08-21] MEDS ORDERED: LOSA50TA41 PO (14:23)
[2019-08-21 20:00] VITALS: BP_SYST 123; BP_DIAS 43; BP_DIAS 63
[2019-08-21] MEDS ORDERED: DEXTROSE 50% WATER 50ML SYRINGE IV PRN (21:00)
[2019-08-21] MEDS ORDERED: CLONIDINE 0.1MG TABLET PO PRN (21:00)
[2019-08-21] MEDS: BLOOD SUGAR DIAGNOSTIC STRIP TEST SCH (21:45)
[2019-08-21] MEDS: HYDROCODONE/ACETAMINOPHEN 5/325MG TABLET PO PRN (21:50)
[2019-08-21] MEDS: INSULIN LISPRO 100 UNITS/ML SUBCUT SCH (22:44)
[2019-08-22] VITALS: BP 117/94
[2019-08-22] MEDS ORDERED: VENL75TA86 PO (00:26)
[2019-08-22] MEDS ORDERED: RANI150T7 PO (00:26)
[2019-08-22] MEDS ORDERED: HYDR50SY PO (00:26)
[2019-08-22] MEDS ORDERED: MECL-159 PO (00:26)
[2019-08-22] MEDS: HYDROCODONE/ACETAMINOPHEN 5/325MG TABLET PO PRN ×3 (03:33→17:38)
[2019-08-22 04:00] VITALS: BP 135/31
[2019-08-22] MEDS: BLOOD SUGAR DIAGNOSTIC STRIP TEST SCH ×3 (06:24→17:20)
[2019-08-22] MEDS ORDERED: LEVOTHYROXINE SODIUM 200MCG TABLET PO SCH (07:20)
[2019-08-22 08:04] LABS: BASOPHILS % 0.6 % (0.0-2.0); EOSINOPHILS % 0.1 % (0.0-5.0); HEMATOCRIT. 28.2 % (36.0-48.0); HEMOGLOBIN. 9.2 g/dL (12.0-16.0); LYMPHOCYTES % 11.1 % (20.0-50.0); MEAN CORPUSCULAR HEMOGLOBIN 33.3 pg (28.0-32.0); MEAN CORPUSCULAR VOLUME 102.2 fL (81.0-99.0); MEAN PLATELET VOLUME 10.9 fl (7.4-10.4); MONOCYTES % 10.1 % (2.0-8.0); NEUTROPHILS % 78.1 % (40.0-76.0); PLATELET 156 x1000/uL (130-400); RED BLOOD CELL COUNT 2.76 mill/uL (4.2-5.4)
[2019-08-22] MEDS: INSULIN LISPRO 100 UNITS/ML SUBCUT SCH ×3 (08:53→17:50)
[2019-08-22] MEDS ORDERED: MEDICATION NOT ON FORMULARY EA (Metoprolol Succinate 100 MG) PO SCH (09:00)
[2019-08-22] MEDS ORDERED: METOPROLOL TARTRATE 100MG TABLET PO SCH (09:00)
[2019-08-22] MEDS ORDERED: NIFEDIPINE XL 60MG TAB PO SCH (09:00)
[2019-08-22] MEDS ORDERED: LOSARTAN POTASSIUM 50 MG TABLET PO SCH (09:00)
[2019-08-22 18:25] VITALS: BP 149/47
== END 2019-08-22 19:15 | disposition home or self-care (01) | DRG 252 ==
LOC: OR 10:06 → 6EST 19:30
PROVIDERS: ADMIT Internal Medicine Nephrology; ATTEND Surgery Vascular Surgery
PROC: 04CK0ZZ Extirpation of Matter from Right Femoral Artery, Open Approach (ICD-10-PCS; principal; 2019-08-21)
PROC: 041K0JL Bypass Right Femoral Artery to Popliteal Artery with Synthetic Substitute, Open Approach (ICD-10-PCS; 2019-08-21)
PROC: 5A1D70Z Performance of Urinary Filtration, Intermittent, Less than 6 Hours Per Day (ICD-10-PCS; 2019-08-22)
DX: E11.52 Type 2 diabetes mellitus with diabetic peripheral angiopathy with gangrene (principal); N18.6 End stage renal disease; E87.1 Hypo-osmolality and hyponatremia; I12.0 Hypertensive chronic kidney disease with stage 5 chronic kidney disease or end stage renal disease; I70.261 Atherosclerosis of native arteries of extremities with gangrene, right leg; D64.9 Anemia, unspecified; E87.5 Hyperkalemia; E11.22 Type 2 diabetes mellitus with diabetic chronic kidney disease; E11.40 Type 2 diabetes mellitus with diabetic neuropathy, unspecified; E78.5 Hyperlipidemia, unspecified; Z86.718 Personal history of other venous thrombosis and embolism; Z89.512 Acquired absence of left leg below knee; Z99.2 Dependence on renal dialysis
CPT/HCPCS: 36415; 80048; 82962; 83036; 85025; 86850; 86900; 88304; 88311; 93005; C1768; C1884; J1100; J1170; J1644; J1815; J2250; J2405; J2704; J3010; J3490; J7030; P9041

== ENCOUNTER 2019-09-12 10:56 | Inpatient (IN) | payer MEDICARE, MEDICAID ==
[~2019-09-12] VITALS: Ht 165.1 cm; Wt 77.9 kg
[~2019-09-12 10:56] MED LIST changes: +ASPI-1497 PO; +CITA10SO PO; +HYDR50SY PO; +LEVO200T8 PO; -LEVO25TA7; +LOSA50TA41 PO; +MECL-159 PO; +METO-411 PO; +NIFE-32 PO; -NIFE10CA; +RANI150T7 PO; +VENL75TA86 PO
[2019-09-12] MEDS ORDERED: PIPERACILLIN/TAZOBACTAM 3.375GM/50ML PREMIX IV ONE (11:15)
[2019-09-12] MEDS ORDERED: VANCOMYCIN 1 G PREMIX 200 ML IV SCH (11:15)
[2019-09-12] MEDS ORDERED: PIPERACILLIN/TAZ 3.375G PREMIX 50 ML IV NR (11:30)
[2019-09-12] MEDS ORDERED: CALCIUM GLUCONATE 100MG/ML 10ML VIAL IV ONE (11:30)
[2019-09-12 11:36] LABS: CHLORIDE 98 mEq/L (98-107)
[2019-09-12 11:42] LABS: INR 1.3; PROTHROMBIN TIME 13.2 sec (9.6-11.0)
[2019-09-12 11:43] LABS: BASOPHILS % 0.6 % (0.0-2.0); EOSINOPHILS % 2.5 % (0.0-5.0); HEMATOCRIT. 30.3 % (36.0-48.0); HEMOGLOBIN. 9.6 g/dL (12.0-16.0); LYMPHOCYTES % 16.5 % (20.0-50.0); MEAN CORPUSCULAR VOLUME 101.1 fL (81.0-99.0); MEAN PLATELET VOLUME 10.9 fl (7.4-10.4); MONOCYTES % 9.1 % (2.0-8.0); NEUTROPHILS % 71.3 % (40.0-76.0); PLATELET 191 x1000/uL (130-400); RED CELL DISTRIBUTION WIDTH 15.8 % (11.6-14.6)
[2019-09-12] MEDS ORDERED: IOHEXOL-300 100 ML BOTTLE ONE (12:35)
[2019-09-12] MEDS ORDERED: ACETAMINOPHEN 325MG TABLET PO PRN (17:15)
[2019-09-12] MEDS ORDERED: ONDANSETRON HCL 4MG/2ML INJ IV PRN (17:15)
[2019-09-12] MEDS ORDERED: DEXTROSE 50% WATER 50ML SYRINGE IV PRN (17:15)
[2019-09-12] MEDS ORDERED: PIPERACILLIN/TAZOBACTAM 3.375 G in DEXT 5% WATER 100 ML IV SCH (17:30)
[2019-09-12] MEDS: INSULIN LISPRO 100 UNITS/ML SUBCUT SCH ×2 (18:20→20:16)
[2019-09-12 19:01] VITALS: BP 144/75
[2019-09-12 20:00] VITALS: BP 145/66
[2019-09-12] MEDS: ENOXAPARIN 30MG/0.3ML SYR SUBCUT SCH (20:06)
[2019-09-12] MEDS: BLOOD SUGAR DIAGNOSTIC STRIP TEST SCH (20:16)
[2019-09-12 21:36] VITALS: BP 153/69
[2019-09-12] MEDS ORDERED: PIPERACILLIN/TAZOBACTAM 2.25 G in DEXTROSE 5% WATER 50 ML IV SCH (22:00)
[2019-09-12] MEDS: PIPERACILLIN/TAZOBACTAM 2.25 G in DEXTROSE 5% WATER 50 ML IV SCH (22:43)
[2019-09-13] VITALS (13 sets, daily range): BP systolic 116–159; BP diastolic 46–85
[2019-09-13] MEDS: PIPERACILLIN/TAZOBACTAM 2.25 G in DEXTROSE 5% WATER 50 ML IV SCH ×3 (05:39→20:51)
[2019-09-13] MEDS: BLOOD SUGAR DIAGNOSTIC STRIP TEST SCH ×4 (05:40→20:51)
[2019-09-13] MEDS: INSULIN LISPRO 100 UNITS/ML SUBCUT SCH ×4 (05:40→20:52)
[2019-09-13 06:32] LABS: BASOPHILS % 0.5 % (0.0-2.0); EOSINOPHILS % 3.6 % (0.0-5.0); HEMATOCRIT. 33.5 % (36.0-48.0); MEAN CORPUSCULAR HEMOGLOBIN 32.3 pg (28.0-32.0); MEAN CORPUSCULAR VOLUME 98.8 fL (81.0-99.0); MEAN PLATELET VOLUME 10.3 fl (7.4-10.4); MONOCYTES % 11.2 % (2.0-8.0); NEUTROPHILS % 73.7 % (40.0-76.0); PLATELET 206 x1000/uL (130-400); RED BLOOD CELL COUNT 3.39 mill/uL (4.2-5.4); RED CELL DISTRIBUTION WIDTH 15.7 % (11.6-14.6)
[2019-09-13] MEDS: NITROGLYCERIN OINT 1GM/INCH UDPKT TD SCH ×3 (11:30→23:24)
[2019-09-13] MEDS ORDERED: POVIDONE-IODINE 10% TOPICAL SOLN 240ML TOP ONE (12:00)
[2019-09-13] MEDS: HYDROCODONE/ACETAMINOPHEN 10/325MG TABLET PO PRN ×2 (12:12→17:45)
[2019-09-13] MEDS: LEVOTHYROXINE SODIUM 100MCG TABLET PO SCH (13:44)
[2019-09-13] MEDS: ASPIRIN 81MG TABLET PO SCH (13:44)
[2019-09-13] MEDS ORDERED: VANCOMYCIN 1 G PREMIX 200 ML IV SCH (15:00)
[2019-09-13] MEDS: ENOXAPARIN 30MG/0.3ML SYR SUBCUT SCH (20:52)
[2019-09-13] MEDS: MORPHINE SULFATE 2 MG/ML CPJ (NOT FOR IM USE) IV PRN (20:56)
[2019-09-14] VITALS (12 sets, daily range): BP systolic 107–174; BP diastolic 57–105
[2019-09-14] MEDS: LEVOTHYROXINE SODIUM 100MCG TABLET PO SCH (05:40)
[2019-09-14] MEDS: PIPERACILLIN/TAZOBACTAM 2.25 G in DEXTROSE 5% WATER 50 ML IV SCH ×3 (05:40→20:52)
[2019-09-14] MEDS: BLOOD SUGAR DIAGNOSTIC STRIP TEST SCH ×4 (05:41→20:02)
[2019-09-14] MEDS: NITROGLYCERIN OINT 1GM/INCH UDPKT TD SCH ×3 (05:41→17:13)
[2019-09-14] MEDS: INSULIN LISPRO 100 UNITS/ML SUBCUT SCH ×4 (07:20→20:01)
[2019-09-14 08:08] LABS: BASOPHILS % 0.5 % (0.0-2.0); EOSINOPHILS % 5.2 % (0.0-5.0); HEMATOCRIT. 31.7 % (36.0-48.0); HEMOGLOBIN. 10.1 g/dL (12.0-16.0); LYMPHOCYTES % 13.9 % (20.0-50.0); MEAN CORPUSCULAR HEMOGLOBIN 31.7 pg (28.0-32.0); MEAN CORPUSCULAR VOLUME 99.1 fL (81.0-99.0); MONOCYTES % 11.5 % (2.0-8.0); NEUTROPHILS % 68.9 % (40.0-76.0); PLATELET 209 x1000/uL (130-400); RED CELL DISTRIBUTION WIDTH 15.7 % (11.6-14.6)
[2019-09-14] MEDS: ASPIRIN 81MG TABLET PO SCH (09:17)
[2019-09-14] MEDS: MORPHINE SULFATE 2 MG/ML CPJ (NOT FOR IM USE) IV PRN ×3 (09:18→20:05)
[2019-09-14] MEDS: ENOXAPARIN 30MG/0.3ML SYR SUBCUT SCH (20:02)
[2019-09-14] MEDS: CLONIDINE 0.1MG TABLET PO PRN (20:51)
[2019-09-15] VITALS (12 sets, daily range): BP systolic 135–179; BP diastolic 51–76
[2019-09-15] MEDS: NITROGLYCERIN OINT 1GM/INCH UDPKT TD SCH ×5 (00:11→23:57)
[2019-09-15] MEDS: METOPROLOL TARTRATE 25MG TABLET PO SCH ×2 (00:36→10:17)
[2019-09-15] MEDS: AMLODIPINE 5MG TABLET PO SCH ×2 (00:36→10:17)
[2019-09-15] MEDS: PIPERACILLIN/TAZOBACTAM 2.25 G in DEXTROSE 5% WATER 50 ML IV SCH ×3 (05:43→20:57)
[2019-09-15] MEDS: LEVOTHYROXINE SODIUM 100MCG TABLET PO SCH (05:43)
[2019-09-15] MEDS: BLOOD SUGAR DIAGNOSTIC STRIP TEST SCH ×4 (05:44→20:58)
[2019-09-15] MEDS: INSULIN LISPRO 100 UNITS/ML SUBCUT SCH ×4 (07:20→20:58)
[2019-09-15] MEDS ORDERED: LOSARTAN POTASSIUM 50 MG TABLET PO NR (09:15)
[2019-09-15] MEDS: MORPHINE SULFATE 2 MG/ML CPJ (NOT FOR IM USE) IV PRN ×2 (10:16→16:28)
[2019-09-15] MEDS: ASPIRIN 81MG TABLET PO SCH (10:17)
[2019-09-15] MEDS ORDERED: IOHEXOL-300 100 ML BOTTLE ONE (10:29)
[2019-09-15] MEDS ORDERED: IOHEXOL-350 100 ML BOTTLE ONE (10:31)
[2019-09-15] MEDS: HYDROCODONE/ACETAMINOPHEN 10/325MG TABLET PO PRN (13:29)
[2019-09-15] MEDS: CLONIDINE 0.1MG TABLET PO PRN (13:30)
[2019-09-15] MEDS: ENOXAPARIN 30MG/0.3ML SYR SUBCUT SCH (20:57)
[2019-09-16] VITALS (12 sets, daily range): BP systolic 119–177; BP diastolic 25–76
[2019-09-16] MEDS: PIPERACILLIN/TAZOBACTAM 2.25 G in DEXTROSE 5% WATER 50 ML IV SCH ×3 (06:14→21:39)
[2019-09-16] MEDS: LEVOTHYROXINE SODIUM 100MCG TABLET PO SCH (06:14)
[2019-09-16] MEDS: BLOOD SUGAR DIAGNOSTIC STRIP TEST SCH ×4 (06:16→20:15)
[2019-09-16] MEDS: NITROGLYCERIN OINT 1GM/INCH UDPKT TD SCH ×4 (06:16→23:48)
[2019-09-16] MEDS: MORPHINE SULFATE 2 MG/ML CPJ (NOT FOR IM USE) IV PRN ×2 (06:32→10:01)
[2019-09-16 06:41] LABS: EOSINOPHILS % 5.6 % (0.0-5.0); HEMATOCRIT. 31.2 % (36.0-48.0); HEMOGLOBIN. 10.1 g/dL (12.0-16.0); LYMPHOCYTES % 21.6 % (20.0-50.0); MEAN CORPUSCULAR HEMOGLOBIN 31.8 pg (28.0-32.0); MEAN CORPUSCULAR VOLUME 97.9 fL (81.0-99.0); MEAN PLATELET VOLUME 9.4 fl (7.4-10.4); MONOCYTES % 10.3 % (2.0-8.0); NEUTROPHILS % 61.5 % (40.0-76.0); PLATELET 216 x1000/uL (130-400); RED BLOOD CELL COUNT 3.18 mill/uL (4.2-5.4)
[2019-09-16] MEDS: INSULIN LISPRO 100 UNITS/ML SUBCUT SCH ×4 (07:20→21:40)
[2019-09-16] MEDS: HYDROCODONE/ACETAMINOPHEN 10/325MG TABLET PO PRN ×2 (08:21→20:14)
[2019-09-16] MEDS: LOSARTAN POTASSIUM 50 MG TABLET PO SCH (08:21)
[2019-09-16] MEDS: ASPIRIN 81MG TABLET PO SCH (08:28)
[2019-09-16] MEDS: CLONIDINE 0.1MG TABLET PO PRN (11:27)
[2019-09-16] MEDS: HYDRALAZINE HCL 50MG TABLET PO SCH (18:30)
[2019-09-16] MEDS: ENOXAPARIN 30MG/0.3ML SYR SUBCUT SCH (20:14)
[2019-09-17] VITALS (13 sets, daily range): BP systolic 112–166; BP diastolic 41–78
[2019-09-17] MEDS: PIPERACILLIN/TAZOBACTAM 2.25 G in DEXTROSE 5% WATER 50 ML IV SCH ×3 (05:35→21:08)
[2019-09-17] MEDS: NITROGLYCERIN OINT 1GM/INCH UDPKT TD SCH ×4 (05:36→22:36)
[2019-09-17 06:08] LABS: EOSINOPHILS % 5.9 % (0.0-5.0); HEMATOCRIT. 31.6 % (36.0-48.0); HEMOGLOBIN. 10.2 g/dL (12.0-16.0); LYMPHOCYTES % 22.2 % (20.0-50.0); MEAN CORPUSCULAR HEMOGLOBIN 31.5 pg (28.0-32.0); MEAN CORPUSCULAR VOLUME 97.4 fL (81.0-99.0); MEAN PLATELET VOLUME 9.5 fl (7.4-10.4); MONOCYTES % 10.2 % (2.0-8.0); NEUTROPHILS % 60.7 % (40.0-76.0); PLATELET 210 x1000/uL (130-400); RED BLOOD CELL COUNT 3.24 mill/uL (4.2-5.4); RED CELL DISTRIBUTION WIDTH 15.5 % (11.6-14.6)
[2019-09-17] MEDS: BLOOD SUGAR DIAGNOSTIC STRIP TEST SCH ×4 (06:08→20:55)
[2019-09-17] MEDS: LEVOTHYROXINE SODIUM 100MCG TABLET PO SCH (06:37)
[2019-09-17] MEDS: INSULIN LISPRO 100 UNITS/ML SUBCUT SCH ×4 (07:20→21:00)
[2019-09-17] MEDS: ASPIRIN 81MG TABLET PO SCH (09:00)
[2019-09-17] MEDS: LOSARTAN POTASSIUM 50 MG TABLET PO SCH (09:00)
[2019-09-17] MEDS: HYDRALAZINE HCL 50MG TABLET PO SCH ×2 (09:00→21:08)
[2019-09-17] MEDS ORDERED: FENTANYL CITRATE/PF 50MCG/ML 2ML VIAL ONE ×2 (11:56→13:04)
[2019-09-17] MEDS ORDERED: MIDAZOLAM HCL 2 MG/2 ML VIAL ONE (11:56)
[2019-09-17] MEDS ORDERED: LIDOCAINE HCL 1% 20ML VIAL (Pyxis) INJ ONE (11:56)
[2019-09-17] MEDS ORDERED: IODIXANOL 320MG/ML 100 ML BOTTLE IV ONE (11:57)
[2019-09-17] MEDS ORDERED: SODIUM CHLORIDE 0.9% IV ONE (12:15)
[2019-09-17] MEDS ORDERED: ALTEPLASE IV ONE (12:15)
[2019-09-17] MEDS ORDERED: HYDRALAZINE 20MG/ML VIAL ONE (12:48)
[2019-09-17] MEDS ORDERED: PROTAMINE SULFATE 10MG/ML VIAL 5ML IV ONE (13:10)
[2019-09-17] MEDS ORDERED: HEPARIN SODIUM 1,000 UNIT/1ML VIAL IV ONE (13:12)
[2019-09-17] MEDS: MORPHINE SULFATE 2 MG/ML CPJ (NOT FOR IM USE) IV PRN (20:10)
[2019-09-17] MEDS: ENOXAPARIN 30MG/0.3ML SYR SUBCUT SCH (21:08)
[2019-09-18] VITALS (14 sets, daily range): BP systolic 114–190; BP diastolic 35–83
[2019-09-18] MEDS: LEVOTHYROXINE SODIUM 100MCG TABLET PO SCH (06:19)
[2019-09-18] MEDS: MORPHINE SULFATE 2 MG/ML CPJ (NOT FOR IM USE) IV PRN ×2 (06:19→21:52)
[2019-09-18] MEDS: NITROGLYCERIN OINT 1GM/INCH UDPKT TD SCH ×4 (06:21→23:38)
[2019-09-18] MEDS: BLOOD SUGAR DIAGNOSTIC STRIP TEST SCH ×4 (06:29→22:00)
[2019-09-18] MEDS: INSULIN LISPRO 100 UNITS/ML SUBCUT SCH ×4 (07:20→21:00)
[2019-09-18 07:48] LABS: EOSINOPHILS % 4.2 % (0.0-5.0); HEMOGLOBIN. 10.4 g/dL (12.0-16.0); LYMPHOCYTES % 17.3 % (20.0-50.0); MEAN CORPUSCULAR HEMOGLOBIN 32.5 pg (28.0-32.0); MEAN CORPUSCULAR VOLUME 97.2 fL (81.0-99.0); MONOCYTES % 11.6 % (2.0-8.0); NEUTROPHILS % 65.9 % (40.0-76.0); PLATELET 206 x1000/uL (130-400); RED BLOOD CELL COUNT 3.19 mill/uL (4.2-5.4); RED CELL DISTRIBUTION WIDTH 15.8 % (11.6-14.6)
[2019-09-18] MEDS: LOSARTAN POTASSIUM 50 MG TABLET PO SCH (08:05)
[2019-09-18] MEDS: HYDRALAZINE HCL 50MG TABLET PO SCH ×2 (08:06→21:56)
[2019-09-18] MEDS: ASPIRIN 81MG TABLET PO SCH (08:06)
[2019-09-18] MEDS: ENOXAPARIN 30MG/0.3ML SYR SUBCUT SCH (21:58)
[2019-09-19] VITALS (11 sets, daily range): BP systolic 127–169; BP diastolic 51–78
[2019-09-19] MEDS: NITROGLYCERIN OINT 1GM/INCH UDPKT TD SCH ×2 (05:56→11:01)
[2019-09-19] MEDS: LEVOTHYROXINE SODIUM 100MCG TABLET PO SCH (05:58)
[2019-09-19] MEDS: BLOOD SUGAR DIAGNOSTIC STRIP TEST SCH ×2 (06:01→11:47)
[2019-09-19 06:34] LABS: BASOPHILS % 0.8 % (0.0-2.0); HEMATOCRIT. 31.4 % (36.0-48.0); HEMOGLOBIN. 10.4 g/dL (12.0-16.0); LYMPHOCYTES % 19.7 % (20.0-50.0); MEAN CORPUSCULAR HEMOGLOBIN 31.9 pg (28.0-32.0); MEAN CORPUSCULAR VOLUME 96.6 fL (81.0-99.0); MEAN PLATELET VOLUME 10.1 fl (7.4-10.4); MONOCYTES % 11.3 % (2.0-8.0); NEUTROPHILS % 63.2 % (40.0-76.0); PLATELET 200 x1000/uL (130-400); RED BLOOD CELL COUNT 3.25 mill/uL (4.2-5.4); RED CELL DISTRIBUTION WIDTH 15.5 % (11.6-14.6)
[2019-09-19] MEDS: INSULIN LISPRO 100 UNITS/ML SUBCUT SCH ×2 (07:20→11:56)
[2019-09-19] MEDS: HYDRALAZINE HCL 50MG TABLET PO SCH (08:22)
[2019-09-19] MEDS: LOSARTAN POTASSIUM 50 MG TABLET PO SCH (08:22)
[2019-09-19] MEDS: ASPIRIN 81MG TABLET PO SCH (08:22)
[2019-09-19] MEDS: MORPHINE SULFATE 2 MG/ML CPJ (NOT FOR IM USE) IV PRN ×2 (09:40→14:27)
[2019-09-19] MEDS ORDERED: HYDR-4009 MT (11:14)
== END 2019-09-19 21:21 | disposition home or self-care (01) | DRG 871 ==
LOC: ER 10:56 → EDBEDREQ 11:32 → EDBEDREQTM 11:32 → 3WST 12:15 → EDBEDREQTM 12:27 → EDBEDREQ 12:27 → ENRESERV 15:36 → CANRESERV 15:36 → EDBEDREQSVC 15:47 → ENRESERV 17:31 → 3WST 09-16 15:08
PROVIDERS: ADMIT Internal Medicine Nephrology; ATTEND Internal Medicine Nephrology
PROC: 5A1D70Z Performance of Urinary Filtration, Intermittent, Less than 6 Hours Per Day (ICD-10-PCS; 2019-09-16)
PROC: B41G1ZZ Fluoroscopy of Left Lower Extremity Arteries using Low Osmolar Contrast (ICD-10-PCS; principal; 2019-09-17)
PROC: B41F1ZZ Fluoroscopy of Right Lower Extremity Arteries using Low Osmolar Contrast (ICD-10-PCS; 2019-09-17)
PROC: 5A1D70Z Performance of Urinary Filtration, Intermittent, Less than 6 Hours Per Day (ICD-10-PCS; 2019-09-19)
DX: A41.9 Sepsis, unspecified organism (principal); N18.6 End stage renal disease; R65.21 Severe sepsis with septic shock; E11.52 Type 2 diabetes mellitus with diabetic peripheral angiopathy with gangrene; I12.0 Hypertensive chronic kidney disease with stage 5 chronic kidney disease or end stage renal disease; E44.0 Moderate protein-calorie malnutrition; E87.1 Hypo-osmolality and hyponatremia; I96 Gangrene, not elsewhere classified; J84.9 Interstitial pulmonary disease, unspecified; T82.868A Thrombosis due to vascular prosthetic devices, implants and grafts, initial encounter; E87.5 Hyperkalemia; E03.9 Hypothyroidism, unspecified; D63.8 Anemia in other chronic diseases classified elsewhere; E78.5 Hyperlipidemia, unspecified; E11.22 Type 2 diabetes mellitus with diabetic chronic kidney disease; E78.00 Pure hypercholesterolemia, unspecified; Z99.2 Dependence on renal dialysis; Z79.899 Other long term (current) drug therapy; Z79.891 Long term (current) use of opiate analgesic; Z79.82 Long term (current) use of aspirin; Z79.4 Long term (current) use of insulin; Z86.718 Personal history of other venous thrombosis and embolism; Z68.28 Body mass index [BMI] 28.0-28.9, adult; Y83.2 Surgical operation with anastomosis, bypass or graft as the cause of abnormal reaction of the patient, or of later complication, without mention of misadventure at the time of the procedure; Y92.89 Other specified places as the place of occurrence of the external cause
CPT/HCPCS: 36246; 36415; 71045; 72191; 73620; 73700; 73706; 75710; 80048; 80053; 80202; 80305; 82962; 83605; 83880; 84145; 84439; 84443; 84484; 85025; 85347; 97162; 99291; C1760; C1769; C1893; C1894; J0360; J0610; J1644; J1650; J1815; J2250; J2270; J2543; J2720; J2997; J3010; J3370; J3490; J7060; Q9967

== ENCOUNTER 2019-11-27 11:11 | Inpatient (IN) | payer MEDICARE, MEDICAID ==
[~2019-11-27] VITALS: Ht 165.1 cm; Wt 74.4 kg
[~2019-11-27 11:11] MED LIST changes: -LOSA50TA41 PO; -METO-411 PO
[2019-11-27] MEDS ORDERED: PIPERACILLIN SODIUM/TAZOBACTAM 4.5 G in DEXT 5% WATER 100 ML IV SCH (12:00)
[2019-11-27 12:32] LABS: BASOPHILS % 0.6 % (0.0-2.0); HEMOGLOBIN. 11.8 g/dL (12.0-16.0); MEAN CORPUSCULAR HEMOGLOBIN 28.9 pg (28.0-32.0); MEAN CORPUSCULAR VOLUME 90.7 fL (81.0-99.0); MEAN PLATELET VOLUME 10.2 fl (7.4-10.4); NEUTROPHILS % 81.4 % (40.0-76.0); PLATELET 193 x1000/uL (130-400); RED BLOOD CELL COUNT 4.08 mill/uL (4.2-5.4)
[2019-11-27 12:36] LABS: CHLORIDE 99 mEq/L (98-107)
[2019-11-27 12:46] LABS: INR 1.1; PROTHROMBIN TIME 11.9 sec (9.6-11.0)
[2019-11-27] MEDS: HYDROCODONE/ACETAMINOPHEN 10/325MG TABLET PO PRN ×2 (14:55→23:15)
[2019-11-27] MEDS ORDERED: MAGNESIUM/ALUMINUM HYDROXIDE/SIMETHICONE 30ML UDC PO PRN (19:15)
[2019-11-27] MEDS ORDERED: ZOLPIDEM TARTRATE 5MG TABLET PO PRN (19:15)
[2019-11-27] MEDS ORDERED: ACETAMINOPHEN 325MG TABLET PO PRN (19:15)
[2019-11-27] MEDS ORDERED: DIPHENHYDRAMINE 50MG/ML VIAL IV PRN (19:15)
[2019-11-27] MEDS: BLOOD SUGAR DIAGNOSTIC STRIP TEST SCH (20:16)
[2019-11-27] MEDS: INSULIN LISPRO 100 UNITS/ML SUBCUT SCH (20:16)
[2019-11-27] MEDS: DEXTROSE 50% WATER 50ML SYRINGE IV PRN (20:25)
[2019-11-27] MEDS: ONDANSETRON HCL 4MG/2ML INJ IV PRN (20:39)
[2019-11-27] MEDS: SODIUM CHLORIDE 0.9% INJ 3ML FLUSH IVF SCH (23:14)
[2019-11-27] MEDS: CLONIDINE 0.1MG TABLET PO PRN (23:14)
[2019-11-27] MEDS ORDERED: DEXT 5% WATER 500 ML IV ONE (23:30)
[2019-11-28] VITALS: BP 149/128
[2019-11-28] MEDS ORDERED: SIMV-46 PO (03:08)
[2019-11-28] MEDS ORDERED: HYDR-4001 PO (03:08)
[2019-11-28] MEDS ORDERED: DIPH25TA23 PO (03:08)
[2019-11-28] MEDS ORDERED: METO100T16 PO (03:08)
[2019-11-28] MEDS ORDERED: LOSA50TA41 PO (03:08)
[2019-11-28] MEDS ORDERED: GABA-529 PO (03:08)
[2019-11-28] MEDS ORDERED: MUPI22OI2 TP (03:08)
[2019-11-28 04:00] VITALS: BP 152/57
[2019-11-28] MEDS: SODIUM CHLORIDE 0.9% INJ 3ML FLUSH IVF SCH ×2 (05:40→14:00)
[2019-11-28] MEDS: BLOOD SUGAR DIAGNOSTIC STRIP TEST SCH ×4 (05:53→20:45)
[2019-11-28] MEDS: DEXTROSE 50% WATER 50ML SYRINGE IV PRN ×2 (05:53→17:26)
[2019-11-28] MEDS ORDERED: LEVOTHYROXINE SODIUM 200MCG TABLET PO SCH (07:40)
[2019-11-28] MEDS ORDERED: SODIUM CHLORIDE 0.9% 1,000 ML IV SCH (07:49)
[2019-11-28 08:00] VITALS: BP 139/57
[2019-11-28] MEDS: INSULIN LISPRO 100 UNITS/ML SUBCUT SCH ×4 (08:10→21:00)
[2019-11-28] MEDS: LOSARTAN POTASSIUM 50 MG TABLET PO SCH (09:00)
[2019-11-28 09:29] LABS: BASOPHILS % 0.9 % (0.0-2.0); EOSINOPHILS % 3.9 % (0.0-5.0); HEMATOCRIT. 35.9 % (36.0-48.0); HEMOGLOBIN. 11.2 g/dL (12.0-16.0); LYMPHOCYTES % 15.5 % (20.0-50.0); MEAN CORPUSCULAR HEMOGLOBIN 28.2 pg (28.0-32.0); MEAN CORPUSCULAR VOLUME 90.2 fL (81.0-99.0); MEAN PLATELET VOLUME 9.5 fl (7.4-10.4); MONOCYTES % 7.1 % (2.0-8.0); NEUTROPHILS % 72.6 % (40.0-76.0); PLATELET 195 x1000/uL (130-400); RED BLOOD CELL COUNT 3.98 mill/uL (4.2-5.4); RED CELL DISTRIBUTION WIDTH 16.8 % (11.6-14.6)
[2019-11-28] MEDS ORDERED: GENTAMICIN SULF 40MG/ML 2ML VIAL ONE (10:37)
[2019-11-28] MEDS ORDERED: TRIAMCINOLONE ACETONIDE 40MG/ML 1ML VIAL ONE (10:37)
[2019-11-28] MEDS ORDERED: LIDOCAINE HCL 1% 20ML VIAL (Pyxis) INJ ONE (10:38)
[2019-11-28] MEDS ORDERED: BUPIVACAINE HCL/PF 0.5% (5MG/ML) 10ML ONE (10:38)
[2019-11-28] MEDS ORDERED: BACITRACIN 15GM TUBE TOP ONE (10:38)
[2019-11-28] MEDS ORDERED: BACITRACIN 50,000 UNITS/VIAL ONE (10:39)
[2019-11-28] MEDS ORDERED: PROPOFOL 200MG/20ML VIAL IV ONE (11:48)
[2019-11-28] MEDS ORDERED: CEFAZOLIN SODIUM 1000MG/VIAL ONE (11:48)
[2019-11-28] MEDS ORDERED: LIDOCAINE HCL/PF 1% 10 MG/ML 5ML VIAL ONE (11:48)
[2019-11-28] MEDS ORDERED: LIDOCAINE HCL 2% JELLY 5ML ONE (11:49)
[2019-11-28] MEDS ORDERED: VANCOMYCIN HCL 1 GM/VIAL ONE (12:38)
[2019-11-28] MEDS ORDERED: SODIUM CHLORIDE 0.9% 100 ML ONE (12:38)
[2019-11-28] MEDS ORDERED: NORMAL SALINE 0.9% 10 ML SYR ONE (12:38)
[2019-11-28] MEDS ORDERED: ONDANSETRON HCL 4MG/2ML INJ ONE (12:59)
[2019-11-28] MEDS ORDERED: METOCLOPRAMIDE HCL 10MG/2ML VIAL ONE (12:59)
[2019-11-28] MEDS ORDERED: ONDANSETRON HCL 4MG/2ML INJ IV PRN (13:15)
[2019-11-28] MEDS ORDERED: HYDROMORPHONE HCL/PF 2MG/ML CPJ IV PRN (13:15)
[2019-11-28 16:00] VITALS: BP 162/76
[2019-11-28 17:42] VITALS: BP 151/68
[2019-11-28] MEDS: PIPERACILLIN/TAZOBACTAM 2.25 G in DEXTROSE 5% WATER 50 ML IV SCH (20:23)
[2019-11-28 20:39] VITALS: BP 142/51
[2019-11-28] MEDS: MORPHINE SULFATE 2 MG/ML CPJ (NOT FOR IM USE) IV PRN (21:47)
[2019-11-28] MEDS ORDERED: VANCOMYCIN 500 MG PREMIX 100 ML IV NR (22:00)
[2019-11-28] MEDS: CLONIDINE 0.1MG TABLET PO PRN (23:59)
[2019-11-29] VITALS: BP 183/61
[2019-11-29] MEDS: SODIUM CHLORIDE 0.9% INJ 3ML FLUSH IVF SCH ×4 (00:03→21:30)
[2019-11-29] MEDS: HYDROCODONE/ACETAMINOPHEN 5/325MG TABLET PO PRN ×2 (00:50→17:54)
[2019-11-29] MEDS: PIPERACILLIN/TAZOBACTAM 2.25 G in DEXTROSE 5% WATER 50 ML IV SCH ×3 (02:04→14:00)
[2019-11-29] MEDS: MORPHINE SULFATE 2 MG/ML CPJ (NOT FOR IM USE) IV PRN ×2 (02:05→06:13)
[2019-11-29 04:00] VITALS: BP 167/44
[2019-11-29] MEDS: BLOOD SUGAR DIAGNOSTIC STRIP TEST SCH ×4 (05:39→21:29)
[2019-11-29 06:09] LABS: BASOPHILS % 0.5 % (0.0-2.0); EOSINOPHILS % 3.3 % (0.0-5.0); HEMATOCRIT. 33.7 % (36.0-48.0); HEMOGLOBIN. 10.4 g/dL (12.0-16.0); LYMPHOCYTES % 7.6 % (20.0-50.0); MEAN CORPUSCULAR HEMOGLOBIN 27.8 pg (28.0-32.0); MEAN CORPUSCULAR VOLUME 90.4 fL (81.0-99.0); MONOCYTES % 6.8 % (2.0-8.0); NEUTROPHILS % 81.8 % (40.0-76.0); PLATELET 201 x1000/uL (130-400); RED BLOOD CELL COUNT 3.72 mill/uL (4.2-5.4); RED CELL DISTRIBUTION WIDTH 17.1 % (11.6-14.6)
[2019-11-29 08:00] VITALS: BP 152/78
[2019-11-29] MEDS: INSULIN LISPRO 100 UNITS/ML SUBCUT SCH ×4 (08:10→22:25)
[2019-11-29] MEDS: HYDROCODONE/ACETAMINOPHEN 10/325MG TABLET PO PRN ×2 (08:42)
[2019-11-29] MEDS: LOSARTAN POTASSIUM 50 MG TABLET PO SCH (09:25)
[2019-11-29] MEDS: LEVOTHYROXINE SODIUM 100MCG TABLET PO SCH (09:25)
[2019-11-29] MEDS: MORPHINE SULFATE 4 MG/ML CPJ (NOT FOR IM USE) IV PRN ×3 (11:45→20:59)
[2019-11-29 12:00] VITALS: BP 136/65
[2019-11-29 16:00] VITALS: BP 146/87
[2019-11-29] MEDS ORDERED: VANCOMYCIN 750 MG PREMIX 150 ML IV SCH (18:00)
[2019-11-29 20:00] VITALS: BP 165/46
[2019-11-30] VITALS: BP 202/66
[2019-11-30] MEDS: MORPHINE SULFATE 4 MG/ML CPJ (NOT FOR IM USE) IV PRN ×5 (01:01→19:47)
[2019-11-30] MEDS: PIPERACILLIN/TAZOBACTAM 2.25 G in DEXTROSE 5% WATER 50 ML IV SCH ×4 (02:50→19:46)
[2019-11-30 04:00] VITALS: BP 94/60
[2019-11-30] MEDS: CLONIDINE 0.1MG TABLET PO PRN ×2 (05:21→21:13)
[2019-11-30] MEDS: SODIUM CHLORIDE 0.9% INJ 3ML FLUSH IVF SCH ×3 (05:53→21:14)
[2019-11-30] MEDS: LEVOTHYROXINE SODIUM 100MCG TABLET PO SCH (06:58)
[2019-11-30] MEDS: BLOOD SUGAR DIAGNOSTIC STRIP TEST SCH ×4 (06:59→21:14)
[2019-11-30] MEDS: INSULIN LISPRO 100 UNITS/ML SUBCUT SCH ×4 (07:50→21:00)
[2019-11-30 08:00] VITALS: BP 130/74
[2019-11-30] MEDS: HYDROCODONE/ACETAMINOPHEN 5/325MG TABLET PO PRN ×2 (08:25→17:35)
[2019-11-30] MEDS: LOSARTAN POTASSIUM 50 MG TABLET PO SCH (08:25)
[2019-11-30 12:00] VITALS: BP 145/41
[2019-11-30 20:00] VITALS: BP 167/45
[2019-11-30] MEDS: MORPHINE SULFATE 30MG TABLET SR PO SCH (21:12)
[2019-12-01] VITALS: BP 153/47
[2019-12-01] MEDS: MORPHINE SULFATE 4 MG/ML CPJ (NOT FOR IM USE) IV PRN ×5 (00:47→19:08)
[2019-12-01] MEDS: PIPERACILLIN/TAZOBACTAM 2.25 G in DEXTROSE 5% WATER 50 ML IV SCH ×4 (02:43→21:38)
[2019-12-01 04:00] VITALS: BP 115/45
[2019-12-01] MEDS: SODIUM CHLORIDE 0.9% INJ 3ML FLUSH IVF SCH ×2 (05:59→21:29)
[2019-12-01] MEDS: LEVOTHYROXINE SODIUM 200MCG TABLET PO SCH (06:39)
[2019-12-01] MEDS: BLOOD SUGAR DIAGNOSTIC STRIP TEST SCH ×4 (06:39→21:29)
[2019-12-01] MEDS: INSULIN LISPRO 100 UNITS/ML SUBCUT SCH ×4 (07:42→21:00)
[2019-12-01] MEDS: MORPHINE SULFATE 30MG TABLET SR PO SCH ×2 (08:21→21:29)
[2019-12-01] MEDS: LOSARTAN POTASSIUM 50 MG TABLET PO SCH (08:21)
[2019-12-01] MEDS: DOCUSATE SODIUM 100MG CAPSULE PO SCH (17:00)
[2019-12-01 20:00] VITALS: BP 156/53
[2019-12-01] MEDS: POLYETHYLENE GLYCOL 3350 (17GM) 1 DOSE PACK PO SCH (21:38)
[2019-12-02] VITALS: BP 135/63
[2019-12-02] MEDS: MORPHINE SULFATE 4 MG/ML CPJ (NOT FOR IM USE) IV PRN ×4 (00:24→16:54)
[2019-12-02 01:49] VITALS: BP 135/63
[2019-12-02] MEDS: PIPERACILLIN/TAZOBACTAM 2.25 G in DEXTROSE 5% WATER 50 ML IV SCH ×4 (02:13→21:03)
[2019-12-02 02:51] VITALS: BP 185/63
[2019-12-02 04:00] VITALS: BP 90/46
[2019-12-02] MEDS: SODIUM CHLORIDE 0.9% INJ 3ML FLUSH IVF SCH ×3 (06:11→21:04)
[2019-12-02] MEDS: LEVOTHYROXINE SODIUM 200MCG TABLET PO SCH (06:37)
[2019-12-02] MEDS: BLOOD SUGAR DIAGNOSTIC STRIP TEST SCH ×4 (06:43→21:05)
[2019-12-02] MEDS: INSULIN LISPRO 100 UNITS/ML SUBCUT SCH ×4 (06:43→21:04)
[2019-12-02] MEDS: DOCUSATE SODIUM 100MG CAPSULE PO SCH ×2 (08:42→16:41)
[2019-12-02] MEDS: LOSARTAN POTASSIUM 50 MG TABLET PO SCH (08:42)
[2019-12-02] MEDS: MORPHINE SULFATE 30MG TABLET SR PO SCH ×2 (08:42→21:03)
[2019-12-02 20:00] VITALS: BP 159/49
[2019-12-02] MEDS: POLYETHYLENE GLYCOL 3350 (17GM) 1 DOSE PACK PO SCH (21:00)
[2019-12-03] VITALS: BP 140/41
[2019-12-03] MEDS: PIPERACILLIN/TAZOBACTAM 2.25 G in DEXTROSE 5% WATER 50 ML IV SCH ×3 (01:58→13:20)
[2019-12-03 04:00] VITALS: BP 134/42
[2019-12-03] MEDS: BLOOD SUGAR DIAGNOSTIC STRIP TEST SCH ×4 (06:22→21:00)
[2019-12-03] MEDS: LEVOTHYROXINE SODIUM 200MCG TABLET PO SCH (06:28)
[2019-12-03] MEDS: SODIUM CHLORIDE 0.9% INJ 3ML FLUSH IVF SCH ×3 (06:30→22:14)
[2019-12-03] MEDS: INSULIN LISPRO 100 UNITS/ML SUBCUT SCH ×4 (07:03→21:00)
[2019-12-03 08:00] VITALS: BP 167/67
[2019-12-03] MEDS: LOSARTAN POTASSIUM 50 MG TABLET PO SCH (08:56)
[2019-12-03] MEDS: DOCUSATE SODIUM 100MG CAPSULE PO SCH ×2 (08:56→16:48)
[2019-12-03] MEDS: MORPHINE SULFATE 30MG TABLET SR PO SCH ×2 (09:01→22:35)
[2019-12-03] MEDS: MORPHINE SULFATE 4 MG/ML CPJ (NOT FOR IM USE) IV PRN ×2 (10:51→16:51)
[2019-12-03 12:00] VITALS: BP 176/59
[2019-12-03 16:00] VITALS: BP 135/49
[2019-12-03] MEDS: ONDANSETRON HCL 4MG/2ML INJ IV PRN (16:50)
[2019-12-03 20:00] VITALS: BP 163/53
[2019-12-03] MEDS: POLYETHYLENE GLYCOL 3350 (17GM) 1 DOSE PACK PO SCH (22:13)
[2019-12-04] MEDS: ACETAMINOPHEN 325MG TABLET PO PRN ×2 (02:43→06:42)
[2019-12-04 04:00] VITALS: BP 141/71
[2019-12-04 06:41] LABS: FOLIC ACID (FOLATE) SERUM 9.1 ng/mL (>5.38)
[2019-12-04] MEDS: SODIUM CHLORIDE 0.9% INJ 3ML FLUSH IVF SCH (06:43)
[2019-12-04 06:45] LABS: HEMATOCRIT. 29.6 % (36.0-48.0); HEMOGLOBIN. 9.4 g/dL (12.0-16.0); MEAN CORPUSCULAR VOLUME 88.2 fL (81.0-99.0); MEAN PLATELET VOLUME 9.6 fl (7.4-10.4); PLATELET 249 x1000/uL (130-400); RED BLOOD CELL COUNT 3.35 mill/uL (4.2-5.4); RED CELL DISTRIBUTION WIDTH 16.8 % (11.6-14.6)
[2019-12-04 07:34] LABS: BASOPHILS % 0.8 % (0.0-2.0); EOSINOPHILS % 4.7 % (0.0-5.0); LYMPHOCYTES % 16.2 % (20.0-50.0); MONOCYTES % 11.1 % (2.0-8.0); NEUTROPHILS % 67.2 % (40.0-76.0)
[2019-12-04] MEDS: INSULIN LISPRO 100 UNITS/ML SUBCUT SCH ×4 (07:50→21:52)
[2019-12-04 08:00] VITALS: BP 166/65
[2019-12-04] MEDS: LEVOTHYROXINE SODIUM 200MCG TABLET PO SCH (08:40)
[2019-12-04] MEDS: DOCUSATE SODIUM 100MG CAPSULE PO SCH ×2 (08:40→17:00)
[2019-12-04] MEDS: LOSARTAN POTASSIUM 50 MG TABLET PO SCH (08:41)
[2019-12-04] MEDS: MORPHINE SULFATE 30MG TABLET SR PO SCH ×2 (08:41→21:45)
[2019-12-04] MEDS: MORPHINE SULFATE 4 MG/ML CPJ (NOT FOR IM USE) IV PRN ×2 (11:00→18:01)
[2019-12-04 12:00] VITALS: BP 158/56
[2019-12-04] MEDS: BLOOD SUGAR DIAGNOSTIC STRIP TEST SCH ×3 (12:26→21:42)
[2019-12-04] MEDS ORDERED: VANCOMYCIN 500 MG PREMIX 100 ML IV NR (18:00)
[2019-12-04 20:00] VITALS: BP 162/69
[2019-12-04] MEDS: POLYETHYLENE GLYCOL 3350 (17GM) 1 DOSE PACK PO SCH (21:43)
[2019-12-05] VITALS (8 sets, daily range): BP systolic 114–188; BP diastolic 51–72
[2019-12-05] MEDS: BLOOD SUGAR DIAGNOSTIC STRIP TEST SCH ×4 (07:34→21:00)
[2019-12-05] MEDS: INSULIN LISPRO 100 UNITS/ML SUBCUT SCH ×4 (07:34→21:00)
[2019-12-05] MEDS: LEVOTHYROXINE SODIUM 200MCG TABLET PO SCH (08:31)
[2019-12-05] MEDS: MORPHINE SULFATE 30MG TABLET SR PO SCH ×2 (08:32→21:00)
[2019-12-05] MEDS: DOCUSATE SODIUM 100MG CAPSULE PO SCH ×2 (08:32→17:00)
[2019-12-05] MEDS ORDERED: LOSARTAN POTASSIUM 50 MG TABLET PO SCH (09:00)
[2019-12-05] MEDS ORDERED: LEVOTHYROXINE SODIUM 50MCG TABLET PO SCH (10:45)
[2019-12-05] MEDS: MORPHINE SULFATE 4 MG/ML CPJ (NOT FOR IM USE) IV PRN (14:43)
[2019-12-05] MEDS: CLONIDINE 0.1MG TABLET PO PRN (20:21)
[2019-12-05] MEDS: POLYETHYLENE GLYCOL 3350 (17GM) 1 DOSE PACK PO SCH (21:00)
[2019-12-05] MEDS: ACETAMINOPHEN 325MG TABLET PO PRN (22:19)
[2019-12-08 06:12] LABS: 25-HYDROXY VITAMIN D3 12 ng/mL (.)
== END 2019-12-05 22:45 | disposition home health service (06) | DRG 239 ==
LOC: ER 11:11 → 7WST 13:28 → EDBEDREQ 13:32 → EDBEDREQTM 13:32 → ENRESERV 20:58 → 6EST 11-29 19:17
PROVIDERS: ADMIT Internal Medicine; ATTEND Internal Medicine
PROC: 0Y6M0Z9 Detachment at Right Foot, Partial 1st Ray, Open Approach (ICD-10-PCS; principal; 2019-11-30)
PROC: 0Y6M0ZB Detachment at Right Foot, Partial 2nd Ray, Open Approach (ICD-10-PCS; 2019-11-30)
PROC: 0Y6M0ZC Detachment at Right Foot, Partial 3rd Ray, Open Approach (ICD-10-PCS; 2019-11-30)
PROC: 0Y6M0ZD Detachment at Right Foot, Partial 4th Ray, Open Approach (ICD-10-PCS; 2019-11-30)
PROC: 0Y6M0ZF Detachment at Right Foot, Partial 5th Ray, Open Approach (ICD-10-PCS; 2019-11-30)
DX: E11.52 Type 2 diabetes mellitus with diabetic peripheral angiopathy with gangrene (principal); N18.6 End stage renal disease; E44.1 Mild protein-calorie malnutrition; I12.0 Hypertensive chronic kidney disease with stage 5 chronic kidney disease or end stage renal disease; E87.1 Hypo-osmolality and hyponatremia; I96 Gangrene, not elsewhere classified; L97.129 Non-pressure chronic ulcer of left thigh with unspecified severity; E03.9 Hypothyroidism, unspecified; E11.22 Type 2 diabetes mellitus with diabetic chronic kidney disease; E11.42 Type 2 diabetes mellitus with diabetic polyneuropathy; D63.8 Anemia in other chronic diseases classified elsewhere; E78.00 Pure hypercholesterolemia, unspecified; R53.81 Other malaise; E78.5 Hyperlipidemia, unspecified; Z20.828 Contact with and (suspected) exposure to other viral communicable diseases; D72.829 Elevated white blood cell count, unspecified; Z99.2 Dependence on renal dialysis; Z89.512 Acquired absence of left leg below knee; Z83.3 Family history of diabetes mellitus; Z68.27 Body mass index [BMI] 27.0-27.9, adult; Z86.718 Personal history of other venous thrombosis and embolism; Z79.4 Long term (current) use of insulin; Z79.899 Other long term (current) drug therapy
CPT/HCPCS: 36415; 71045; 73630; 80048; 80053; 80202; 82306; 82607; 82746; 82962; 83036; 84443; 85025; 87426; 87635; 88311; 93005; 97162; 97166; 97530; 99285; J0690; J1200; J1580; J1815; J2270; J2405; J2543; J2704; J2765; J3301; J3370; J3490; J7050; J7060